=== PATIENT | male | born 1950 | race Caucasian/White ===

== ENCOUNTER 2017-06-06 09:03 | Inpatient (IN) | payer MEDICARE ==
[~2017-06-06] VITALS: Ht 177.8 cm; Wt 82.8 kg
[~2017-06-06 09:03] MED LIST: ASPIR 8181 MG PO; HYDROCODON-ACE1 EA12 PO; LASIX20 MG PO; NORVASC5 MG PO; PERINDOPRIL ERBU8 MG PO; PRAVASTATIN SOD40 MG PO; RYTHMOL150 MG PO; TIZANIDINE HCL4 MG PO; TOPROL XL50 MG PO; ZYRTEC10 MG PO
--- OUTSIDE RECORDS SUMMARY | 2017-06-06 09:06 | XMS REPORT ---
Author Author [facility] Address Unknown Phone Unavailable Care Team Providers Care Fitness Floor Attendant Name Role Phone RAMOS BARCENAS Unavailable Unavailable Problems This patient has no known problems. Allergies, Adverse Reactions, Alerts This patient has no known allergies or adverse reactions. Medications This patient has no known medications. Results Test Description Test Time Test Comments Text Results Atomic Results Result Comments CHEST 2 VIEWS [place] [address] Patient Name: JACLYN QUACH MR #: [id number] : 1950 Age/Sex: 66/M Req #: [id number] Adm Physician: Ordered by: RAMOS BARCENAS MD Report #: [id number] Location: [facility] Room/Bed: Procedure: [id number] DX/CHEST 2 VIEWS Exam Date: 02/03/17 Exam Time: 0845 REPORT STATUS: Signed PROCEDURE: Frontal and lateral views of the chest. COMPARISON: CT chest 01/23/2017. INDICATIONS: SOB FINDINGS: Lines/tubes: None. Lungs: The lungs are well inflated and clear. There is no evidence of pneumonia or pulmonary edema. Pleura : There is no pleural effusion or pneumothorax. Heart and mediastinum: The heart and the mediastinum are normal. Atherosclerotic calcifications. Postoperative changes of the ascending aorta. Bones: No acute bony abnormality. Degenerative changes of the thoracic spine. IMPRESSION: No acute radiographic abnormality. Dictated by: Jaclyn Frank M.D. on 02/03/2017 at 14:35 Electronically approved by: Jaclyn Frank M.D. on 02/03/2017 at 14:35 Dictated By: JACLYN FRANK MD 34 Transcribed By: SERG on 02/03/171434 COPY TO: RAMOS BARCENAS MD CHEST SINGLE (PORTABLE) [place] [address] Patient Name: JACLYN QUACH MR #: [id number] : 1950 Age/Sex: 66/M Req #: [id number] Adm Physician: RAMOS BARCENAS MD Ordered by: RAMOS BARCENAS MD Report #: [id number] Location: [facility] Room/Bed: [facility] Procedure: [id number] DX/CHEST SINGLE (PORTABLE) Exam Date: 01/28/17 Exam Time: 0510 REPORT STATUS: Signed EXAM: CHEST SINGLE (PORTABLE), AP 1 view DATE: 01/28/2017 8:00 AM Time stamp on exam: O 0512 hours INDICATION: Pneumonia COMPARISON: None FINDINGS: LINES/TUBES: None LUNGS: Left lower lobe atelectasis. PLEURA: No effusions or pneumothorax. HEART AND MEDIASTINUM: Normal size and contour. BONES AND SOFT TISSUES: No acute findings. IMPRESSION: Left lower lobe atelectasis. This could represent pneumonia in the appropriate clinical setting. Signed by: Dr. Kevin Mcguire M.D. on 01/28/2017 5:41 AM Dictated By: KEVIN MCGUIRE MD 0 Transcribed By: ANT on 540 COPY TO: RAMOS BARCENAS MD CT CHEST WO [facility] [address] [place] [address] Patient Name: JACLYN QUACH MR #: [id number] : 1950 Age/Sex: 66/M Req #: [id number] Adm Physician: RAMOS BARCENAS MD Ordered by: RAMOS BARCENAS MD Report #: [id number] Location: [facility] Room/Bed: [place] [address] _ Procedure: [id number] CT/CT CHEST WO Exam Date: 01/23/17 Exam Time: 1406 REPORT STATUS: Signed PROCEDURE: CT CHEST WITHOUT CONTRAST COMPARISON: Correlation is made with chest x-ray performed at 1147 hrs. INDICATIONS: PNEUMONIA TECHNIQUE: Axial CT images of the chest were obtained from the lung apices through the adrenal glands. Coronal and sagittal reformations were made available for review. No intravenous contrast was administered. RADIATION DOSE: Total DLP: 495.4 mGy*cm Estimated effective dose: (DLP x 0.014 x size factor) mSv FINDINGS: Lungs: Right lung: Patchy airspace opacities are in the posterior lower lobe with associated discoid atelectasis. The upper and middle lobes are clear. The airways are patent. The lungs diffusely hyperinflated with small foci of paraseptal emphysema and pleural-parenchymal thickening in the apex. Left lung: Patchy airspace opacity in the base of the lung with associated plaque-like atelectasis. The lung is diffusely hyperinflated with small apical paraseptal blebs and mild vertebral apical pleural-parenchymal thickening. No filling defects in the airways. Pleura: Posterior right pleural effusion measures 2.5 cm. Posterior left pleural effusion measures 3.0 cm. No focal pleural thickening. Heart T Mediastinum: The heart is top normal in size. There is a graft in the proximal descending aorta suggestive of TAVR. There are heavy calcifications of the mitral valve. Atherosclerotic ossifications are present throughout the coronary arteries, the aorta, and the origins of the great vessels at the arch. Descending aorta measures 3.1 cm in diameter. The descending aorta measures 2.7 cm in diameter. The main pulmonary artery measures 2.5 cm. There is diffuse esophageal wall thickening without hiatal hernia. 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 No pericardial effusion. Lymph nodes: No enlarged axillary, subarticular, mediastinal, or hilar lymph nodes. Thyroid/base of neck: Unremarkable. Upper abdomen: The liver is decreased in attenuation suggestive of steatosis. No mass in the visualized portions. There is inflammation surrounding the body and tail of the pancreas extending into the pararenal space. A small amount of fluid is at the dome of the liver. The spleen is normal in size and signal. No adrenal mass. Visualized bowel is unremarkable. Musculoskeletal: There are degenerative changes of the spine consistent with age. A compression deformity of T6 is approximately 40-50%. There is mild bowing of posterior cortex into the spinal canal. No significant spinal canal narrowing at this level. There is no evidence of lytic or blastic lesion. There is a healed left lateral rib fracture. CONCLUSION: 1. Bibasilar airspace opacities are suggestive of a combination of infiltrates and atelectasis with small pleural effusions. 2. Diffuse esophageal wall thickening could be secondary to vomiting or esophagitis. 3. Peripancreatic inflammation and small amount of perihepatic ascites. This is nonspecific, but pancreatitis could be an etiology. 4. Hepatic steatosis. 5. Postoperative changes of the mediastinum as described above. 6. Pulmonary hyperinflation with mild burden of paraseptal emphysema. 7. Compression deformity of T6 as described above. Dictated by: Mannie Zheng M.D. on 01/23/2017 at 15:03 Electronically approved by: Mannie Zheng M.D. on 01/23/2017 at 15:03 Dictated By: MANNIE ZHENG MD 1503 Transcribed By: SERG on 01/23/17 1503 COPY TO: RAMOS BARCENAS MD CHEST [facility] (PORTABLE) [place] [address] Patient Name: JACLYN QUACH MR #: [id number] : 1950 Age/Sex: 66/M Req #: [id number] [facility] Physician: Ordered by: ARIELLE JOE MD Report #: [id number] Location: Room/Bed: Procedure: [id number] DX/CHEST SINGLE (PORTABLE) Exam Date: 01/23/17 Exam Time: 1140 REPORT STATUS: Signed PROCEDURE: CHEST SINGLE (PORTABLE) COMPARISON: Chest x-ray, 10/26/14. INDICATIONS: NAUSEA, WEAKNESS FINDINGS: Lines and tubes: None Heart size normal. There is increased atelectasis at both lung bases , greater on the left, which may be accentuated by low lung volumes. No focal opacities in the upper lung zimmerman. No pleural effusion or pneumothorax. Upper abdomen unremarkable with no free air. No acute bony abnormality. CONCLUSION: Atelectasis at both lung bases, likely accentuated by low lung volumes. Early airspace consolidation or pneumonia at the left lung base is a consideration. Dictated by: Joy Pearson M.D. on 01/23/2017 at 12:25 Electronically approved by: Joy Pearson M.D. on 01/23/2017 at 12:25 Dictated By: JOY PEARSON MD 1225 Transcribed By: SERG on 01/23/17 1225 COPY TO: ARIELLE JOE MD
--- OUTSIDE RECORDS SUMMARY | 2017-06-06 09:06 | XMS REPORT | Summary of Care ---
Author Author [facility] Address [address] [place] [address] Phone Unavailable Care Team Providers Care Tube Machine Operator Helper Name Role Phone GWENDOLYN Muñoz, JOY Unavailable Unavailable ERICK Muñoz, HANK Unavailable Unavailable MARLENA STEPHEN, ROXANN AUGUSTE Unavailable Unavailable GWENDOLYN BAY, JOY Devi Unavailable Unavailable Unavailable Unavailable Functional Status Name Dates Details Functional status health issues are not documented Status: Name Dates Details Cognitive status health issues are not documented Status: Problems Name Dates Details Aortic stenosis (424.1, I35.0) Status: Active Aortic stenosis, severe (424.1, I35.0) Status: Active Shortness of breath (786.05, R06.02) Status: Active Special [employer] Analysis Of Computerized Data Status: Active Duration Of Encounter - Review Of Prior Records (___ min) Status: Active Medications Name Dates Details Perindopril Erbumine 4 MG Oral Tablet TAKE 1 TABLET DAILY. Active Pravastatin Sodium 40 MG Oral Tablet TAKE 1 TABLET DAILY. * Quantity: 90 Refills: 2 Active Zyrtec 10 MG TABS TAKE 1 TABLET DAILY. * Refills: 0 Active Metoprolol Succinate ER 50 MG Oral Tablet Extended Release 24 Hour TAKE 1 TABLET TWICE DAILY * Quantity: 60 Refills: 5 HANK SUAREZ M.D. Active Aspirin 81 MG Oral Tablet Delayed Release * Refills: 0 Active Lisinopril 20 MG Oral Tablet TAKE 1 TABLET DAILY. * Quantity: 90 Refills: 3 JOY SNOW M.D. Active Niacin ER 500 MG Oral Capsule Extended Release TAKE 1 CAPSULE TWICE DAILY * Refills: 0 Active Xarelto 10 MG Oral Tablet TAKE 1 TABLET DAILY * Refills: 0 Active Allergies and Adverse Reactions Name Dates Details Mobic (Allergy) Status: Active Procedures Procedure Dates Details Procedures not documented Immunization Name Dates Details Immunizations not documented Social History Name Dates Details - Status: Name Dates Details Former smoker Vital Signs Date Test Result Details No Known Vitals to report Results Date Description Value Details Results not documented Plan of Care Name Dates Details Planned Observations Planned Goals not documented Planned Encounters Appointment; DAI SALINAS: 11-Jun-2017 14:00 Appointment; JOY SNOW M.D. On: 11-Jun-2017 15:10 Instructions Name Dates Details Instructions not documented Encounters Appointment; JOY SNOW M.D. Encounter Diagnosis: Problem not documented On: 15-May-2016 15:00 Appointment; DAI SALINAS Encounter Diagnosis: Problem not documented On: 15-May-2016 16:00 Appointment; JOY SNOW M.D. Encounter Diagnosis: Problem not documented On: 05-Jun-2016 14:50 Appointment; MAGGIE SALINAS Encounter Diagnosis: Problem not documented On: 10-Jul-2016 15:30 Appointment; JOY SNOW M.D. Encounter Diagnosis: Problem not documented On: 10-Jul-2016 16:00
[2017-06-06] MEDS ORDERED: SODIUM CHLORIDE 0.9% 1000ML 1,000 ML IV STA ×3 (09:27→14:48)
[2017-06-06 09:42] LABS: BASOPHILS # (AUTO) 0.1 (0.0-0.1); BASOPHILS % 0.2 % (0.0-1.0); HEMATOCRIT 39.7 % (38.2-49.6); HEMOGLOBIN 14.2 g/dL (14.0-18.0); LYMPHOCYTES # (AUTO) 0.8 (1.0-3.2); LYMPHOCYTES % 3.5 % (18.0-39.1); MEAN CORPUSCULAR HGB CONC 35.8 g/dL (31-35); MEAN CORPUSCULAR VOLUME 86.7 fL (81-99); MONOCYTES # (AUTO) 1.1 (0.2-0.8); MONOCYTES % 4.8 % (4.4-11.3); NEUTROPHILS # (AUTO) 19.5 (2.1-6.9); NEUTROPHILS % 90.1 % (38.7-80.0); PLATELET COUNT 606 x10e3/uL (140-360); RED BLOOD COUNT 4.58 x10e6/uL (4.3-5.7); RED CELL DISTRIBUTION WIDTH 15.3 % (11.7-14.4)
[2017-06-06 10:01] LABS: ALBUMIN 2.7 g/dL (3.5-5.0); ALBUMIN/GLOBULIN RATIO 0.6 (0.8-2.0); ANION GAP 22.9 mmol/L (8-16); CALCIUM 9.2 mg/dL (8.4-10.2); CREATININE, SERUM 1.56 mg/dL (0.72-1.25); POTASSIUM 3.9 mmol/L (3.5-5.1)
[2017-06-06 10:07] LABS: CREATINE KINASE MB 0.4 ng/mL (0-5.0)
[2017-06-06 10:09] LABS: INR 1.08; PROTHROMBIN TIME 13.2 seconds (11.9-14.5)
[2017-06-06 10:10] LABS: PARTIAL THROMBOPLASTIN TIME 29.8 seconds (23.8-35.5)
[2017-06-06 10:35] LABS: B-TYPE NATRIURETIC PEPTIDE2 26.5 pg/mL (0-100)
--- NOTE | 2017-06-06 10:35 | Diagnostic Imaging Report ---
PROCEDURE: CHEST SINGLE (PORTABLE) COMPARISON: Patients [facility], DX, CHEST 2 VIEWS, 02/03/2017, 7:36. INDICATIONS: NO APPETITE FINDINGS: LUNGS: No consolidations or edema. Exam characterized by a poor inspiration. Basilar atelectasis. PLEURA: No effusions or pneumothorax. HEART \T\ MEDIASTINUM: The heart is within normal size-limits. Tortuous and calcified thoracic aorta. Vascular calcification within vessels in both axillary regions. BONES \T\ SOFT TISSUES: No acute findings. CONCLUSION: No acute thoracic abnormality. Taz Latif D.O. Dictated by: Taz Latif D.O. on 06/06/2017 at 10:35 Electronically approved by: Taz Latif D.O. on 06/06/2017 at 10:35
--- NOTE | 2017-06-06 11:53 | Diagnostic Imaging Report ---
PROCEDURE:US ABDOMEN LIMITED COMPARISON:None. INDICATIONS:UPPER ABDOMEN PAIN TECHNIQUE: Strong-scale and color doppler transverse and longitudinal images of the right upper quadrant of the abdomen were obtained. FINDINGS: Exam limited by overlying bowel gas. Liver: 13.0 cm in right mid-clavicular line. Normal echogenicity. No masses. Main portal vein: 0.6 cm, hepatopetal flow. Gallbladder: No stones, sludge, wall thickening, or pericholecystic fluid. Common Bile Duct: 0.3 cm Sonographic Doherty's sign: Negative Right kidney: 9.1 cm. Normal echogenicity. No solid masses or hydronephrosis. Pancreas: Obscured by overlying bowel gas Inferior vena cava: Obscured by overlying bowel gas Aorta: Unremarkable. Ascites: None in the right upper quadrant of the abdomen. CONCLUSION: 1. No sonographic evidence of cholelithiasis or cholecystitis. oKle Chaney M.D. Dictated by: Kole Chaney M.D. on 06/06/2017 at 11:53 Electronically approved by: Kole Chaney M.D. on 06/06/2017 at 11:53
[2017-06-06] MEDS ORDERED: ONDANSETRON HCL INJ 2 MG/ML VIAL IV PRN ×2 (12:30)
[2017-06-06] MEDS ORDERED: ONDANSETRON HCL INJ 2 MG/ML VIAL IV STA (12:58)
[2017-06-06] MEDS: PIPER-TAZ 3.375 GM 50 ML IV SCH ×2 (13:15→22:00)
[2017-06-06] MEDS: SODIUM CHLORIDE 0.9% 1000ML 1,000 ML IV SCH ×2 (14:30→23:09)
[2017-06-06] MEDS ORDERED: PANTOPRAZOLE 40 MG 10ML VIAL IV STA (14:43)
--- NOTE | 2017-06-06 18:11 | Diagnostic Imaging Report ---
PROCEDURE: CT ABDOMEN AND PELVIS WITHOUT CONTRAST TECHNIQUE: The abdomen and pelvis were scanned utilizing a multidetector helical scanner from the diaphragm to the lesser trochanter. No IV contrast was administered per physician's request. Patient unable to tolerate oral contrast. Coronal and sagittal multiplanar reformations were obtained. COMPARISON: [facility], CT, CT CHEST WO, 01/23/2017, 14:06. [facility], US, US ABDOMEN LIMITED, 06/06/2017, 11:08. INDICATIONS: VOMITING FINDINGS: ABSENCE OF INTRAVENOUS CONTRAST DECREASES SENSITIVITY FOR DETECTION OF FOCAL LESIONS AND VASCULAR PATHOLOGY. LOWER THORAX: Multiple linear opacities in the lower lobes bilaterally consistent with scarring. Mild right basal atelectatic changes. Atherosclerotic calcification of the coronary arteries and thoracic aorta. Metallic stent noted in the aorta. HEPATOBILIARY: Partially exophytic 4.3 x 3.3 x 2.7 cm fluid density lesion arising from the inferior aspect of hepatic segment IVB (series 2, image 29). No other focal hepatic lesions. No biliary ductal dilatation. Gallbladder is unremarkable. SPLEEN: No splenomegaly. Possible 2.2 cm splenule. PANCREAS: No ductal dilation or focal lesion. Mild peripancreatic stranding surrounding the head. Multiple calcific densities are noted in the expected location of the pancreatic head and uncinate process (series 2, images 38-43). ADRENALS: No adrenal nodules. KIDNEYS/URETERS: No hydronephrosis, stones, or contour abnormalities. Mild perinephric stranding. PELVIC ORGANS/BLADDER: Mild circumferential bladder wall thickening, likely due to under distention. Prostate is unremarkable. PERITONEUM / RETROPERITONEUM: Moderate fat stranding surrounds the anterior aspect of the stomach body, antrum and pylorus (series 2, image 32). LYMPH NODES: No lymphadenopathy. VESSELS: Marked atherosclerotic calcification of the abdominal aorta and iliac vessels. GI TRACT: No focal stomach lesion is noted. Bowel shows no dilation or obstruction. High density material in the terminal ileum and ileocecal valve may represent residual contrast from prior exam or ingestion of bismuth containing antacids. BONES AND SOFT TISSUES: No aggressive lytic lesion. Multilevel degenerative disc changes in the lower thoracic and lumbosacral spine. Age-indeterminate compression deformities of the T10 and L2 vertebral bodies. IMPRESSION: 1. Exam is limited by the lack of intravenous contrast. 2. Mild peripancreatic stranding surrounding the head, which may be secondary to acute episode of pancreatitis, in the appropriate clinical setting. Unable to assess for necrosis given the lack of intravenous contrast. Multiple calcifications in the expected location of the pancreatic head suggest sequela of chronic pancreatitis. 3. Moderate fat stranding surrounding the anterior aspect of the stomach body, antrum and pylorus. Although this may relate to pancreatitis, infectious or inflammatory gastritis is also a consideration. 4. 4.3 cm fluid density lesion arising from the inferior aspect of hepatic segment IVB may represent an exophytic cyst versus pseudocyst from previous episode of pancreatitis. Kole Chaney M.D. Dictated by: Kole Chaney M.D. on 06/06/2017 at 18:11 Electronically approved by: Kole Chaney M.D. on 06/06/2017 at 18:11
--- NOTE | 2017-06-06 20:21 | History and Physical ---
This 66-year-old gentleman comes in with abdominal pain. HISTORY OF PRESENT ILLNESS: Mr. Gene Mcgee has a history of COPD, history of chronic back pain, history of hyperlipidemia and history of hypertension. He was in his usual state of health until the day prior to admission when the patient started to have abdominal pain, which got very severe and the patient was having abdominal pain intensely and came to the emergency room and was found to have pancreatitis, and admitted for the same. PAST MEDICAL HISTORY: Hypertension, history of low back pain and hyperlipidemia. HOME MEDICATIONS: Amlodipine 5 mg, aspirin 81 mg, Zyrtec 10 mg, hydrocodone 10/325 . As needed, metoprolol 50 mg. Pravastatin 40 mg as night time. REVIEW OF SYSTEMS: Negative for chest pain. Positive for shortness of breath. No diarrhea. No constipation. No rectal bleeding. No hematochezia. Positive for abdominal pain. Positive for nausea and positive for some vomiting. No diplopia and no blurry vision. The patient was recently admitted for pneumonia and was on oxygen which was recently discontinued. PAST SURGICAL HISTORY: Noncontributory. PHYSICAL EXAMINATION GENERAL: The patient is alert and oriented x3. VITAL SIGNS: Pulse rate of 108, temperature 98.5, respiratory rate 27, blood pressure 121/76, pulse oximetry increased to 97% on room air. HEENT: Normocephalic, atraumatic. There is no icterus present. CVS: S1 and S2, tachycardiac. ABDOMEN: Tender in the epigastric area. EXTREMITIES: No cyanosis, clubbing or edema. LABORATORY DATA: Initial white count is 21.6, hemoglobin of 14.2 and hematocrit of 39.7. Neutrophil count was 19.5. Chemistry: Sodium 129, BUN 52, creatinine 1.5. Estimated GFR is 45. ALT and AST normal. BNP was 26.5. Amylase was 1021 and lipase was 2316. IMAGING: CT scan shows mild pancreatic stranding surrounding the head, moderate , in the anterior aspect of the stomach and 4.3 cm fluid density lesion in the right inferior aspect of the hepatic segment, exophytic cyst versus pseudocyst from the previous episode of pancreatitis. ASSESSMENT: Pancreatitis. PLAN: We will go ahead and increase his fluids to about 250 mL an hour. Consult Dr. Layo Maddox. Zosyn mg IV q.6 h. for leukocytosis. Repeat labs, amylase and lipase. Further recommendations depending on clinical course. The patient has a social history of ETOH. We have told the patient not to consume any more alcohol. Continue monitoring the patient. Job#: [id number] MARTHA
[2017-06-06] MEDS: PANTOPRAZOLE 40 MG 10ML VIAL IV SCH (20:33)
[2017-06-07] MEDS: SODIUM CHLORIDE 0.9% 1000ML 1,000 ML IV SCH ×8 (03:09→21:29)
[2017-06-07] MEDS ORDERED: SODIUM CHLORIDE 0.9% 1000ML 1,000 ML IV SCH (04:15)
[2017-06-07 06:10] LABS: BASOPHILS # (AUTO) 0.1 (0.0-0.1); BASOPHILS % 0.3 % (0.0-1.0); EOSINOPHILS % 0.2 % (0.0-6.0); HEMATOCRIT 30.9 % (38.2-49.6); HEMOGLOBIN 10.7 g/dL (14.0-18.0); LYMPHOCYTES # (AUTO) 0.8 (1.0-3.2); LYMPHOCYTES % 3.7 % (18.0-39.1); MEAN CORPUSCULAR HEMOGLOBIN 30.4 pg (28-32); MEAN CORPUSCULAR HGB CONC 34.6 g/dL (31-35); MEAN CORPUSCULAR VOLUME 87.8 fL (81-99); MONOCYTES # (AUTO) 0.8 (0.2-0.8); MONOCYTES % 3.9 % (4.4-11.3); NEUTROPHILS # (AUTO) 18.7 (2.1-6.9); NEUTROPHILS % 89.7 % (38.7-80.0); PLATELET COUNT 418 x10e3/uL (140-360); RED BLOOD COUNT 3.52 x10e6/uL (4.3-5.7); RED CELL DISTRIBUTION WIDTH 15.7 % (11.7-14.4)
[2017-06-07 06:42] LABS: ALANINE AMINOTRANSFERASE 9 IU/L (0-55); ALBUMIN 1.9 g/dL (3.5-5.0); ALBUMIN/GLOBULIN RATIO 0.5 (0.8-2.0); ALKALINE PHOSPHATASE 95 IU/L (40-150); AMYLASE 820 U/L (25-125); ANION GAP 15.3 mmol/L (8-16); BLOOD UREA NITROGEN 32 mg/dL (7-26); BUN/CREATININE RATIO 34 (6-25); CALCIUM 7.4 mg/dL (8.4-10.2); CARBON DIOXIDE 22 mmol/L (22-29); CHLORIDE 100 mmol/L (98-107); CHOL/HDL RATIO 5.1 (3.9-4.7); CHOLESTEROL 77 MD/DL (0-199); CREATININE, SERUM 0.93 mg/dL (0.72-1.25); EST GLOMERULAR FILTRATION RATE > 60 ML/MIN (60-); GLUCOSE 104 mg/dL (74-118); HDL CHOLESTEROL 15 MG/DL (40-60); LDL CHOLESTEROL 48 MG/DL (60-130); POTASSIUM 3.3 mmol/L (3.5-5.1); SODIUM 134 mmol/L (136-145); TRIGLYCERIDES 72 MG/DL (0-149)
[2017-06-07] MEDS: PIPER-TAZ 3.375 GM 50 ML IV SCH ×3 (06:58→21:28)
[2017-06-07 07:07] LABS: LIPASE 1599 U/L (8-78)
[2017-06-07 08:53] LABS: LYMPHOCYTES % (MANUAL) 2 % (19-48); MONOCYTES % (MANUAL) 2 % (3.4-9.0); NEUTROPHILS % (MANUAL) 96 % (40-74); PLATELET ESTIMATE MODERATELY INCREASED; PLATELET MORPHOLOGY COMMENT NORMAL; RBC MORPHOLOGY COMMENT NORMAL
[2017-06-07] MEDS: PANTOPRAZOLE 40 MG 10ML VIAL IV SCH ×2 (10:33→19:43)
[2017-06-07 16:13] VITALS: BP 123/62
[2017-06-07 19:12] VITALS: BP 123/62
[2017-06-07 20:14] VITALS: BP 117/65
[2017-06-07] MEDS ORDERED: ZOLPIDEM TARTRATE 5 MG TAB PO PRN (21:15)
[2017-06-08] VITALS (8 sets, daily range): BP systolic 113–130; BP diastolic 61–75
[2017-06-08] MEDS: SODIUM CHLORIDE 0.9% 1000ML 1,000 ML IV SCH ×6 (03:37→21:56)
[2017-06-08] MEDS: PIPER-TAZ 3.375 GM 50 ML IV SCH ×3 (05:31→21:33)
[2017-06-08 07:23] LABS: BASOPHILS # (AUTO) 0.1 (0.0-0.1); BASOPHILS % 0.5 % (0.0-1.0); EOSINOPHILS # (AUTO) 0.1 (0.0-0.4); EOSINOPHILS % 0.3 % (0.0-6.0); HEMATOCRIT 26.9 % (38.2-49.6); HEMOGLOBIN 9.5 g/dL (14.0-18.0); LYMPHOCYTES % 4.5 % (18.0-39.1); MEAN CORPUSCULAR HEMOGLOBIN 31.1 pg (28-32); MEAN CORPUSCULAR HGB CONC 35.3 g/dL (31-35); MEAN CORPUSCULAR VOLUME 88.2 fL (81-99); MONOCYTES # (AUTO) 1.2 (0.2-0.8); MONOCYTES % 5.3 % (4.4-11.3); NEUTROPHILS # (AUTO) 18.9 (2.1-6.9); NEUTROPHILS % 85.6 % (38.7-80.0); PLATELET COUNT 344 x10e3/uL (140-360); RED BLOOD COUNT 3.05 x10e6/uL (4.3-5.7); RED CELL DISTRIBUTION WIDTH 16.1 % (11.7-14.4)
[2017-06-08 07:44] LABS: ALANINE AMINOTRANSFERASE 14 IU/L (0-55); ALBUMIN 1.8 g/dL (3.5-5.0); ALBUMIN/GLOBULIN RATIO 0.5 (0.8-2.0); ALKALINE PHOSPHATASE 94 IU/L (40-150); AMYLASE 651 U/L (25-125); ANION GAP 16.7 mmol/L (8-16); BLOOD UREA NITROGEN 14 mg/dL (7-26); BUN/CREATININE RATIO 18 (6-25); CALCIUM 7.2 mg/dL (8.4-10.2); CARBON DIOXIDE 19 mmol/L (22-29); CHLORIDE 100 mmol/L (98-107); EST GLOMERULAR FILTRATION RATE > 60 ML/MIN (60-); GLUCOSE 92 mg/dL (74-118); SODIUM 133 mmol/L (136-145)
[2017-06-08 08:19] LABS: POTASSIUM 2.7 mmol/L (3.5-5.1)
[2017-06-08] MEDS ORDERED: POTASSIUM CHLORIDE 20MEQ/100ML 300 ML IV ONE (08:45)
[2017-06-08] MEDS: PANTOPRAZOLE 40 MG 10ML VIAL IV SCH ×2 (09:07→21:33)
[2017-06-08] MEDS ORDERED: LORAZEPAM INJ 2 MG/ML VIAL IV ONE (09:45)
[2017-06-08] MEDS: LORAZEPAM INJ 2 MG/ML VIAL IV PRN ×2 (09:56→17:24)
[2017-06-08] MEDS: POTASSIUM CHLORIDE 20 MEQ in SODIUM CHLORIDE 0.9% 90 ML IV NR ×3 (10:30→14:30)
[2017-06-08 10:36] LABS: LIPASE 1586 U/L (8-78)
[2017-06-08 11:46] LABS: BAND NEUTROPHILS % (MANUAL) 7 %; LYMPHOCYTES % (MANUAL) 6 % (19-48); MONOCYTES % (MANUAL) 3 % (3.4-9.0); NEUTROPHILS % (MANUAL) 84 % (40-74)
[2017-06-08 11:47] LABS: PLATELET ESTIMATE ADEQUATE; PLATELET MORPHOLOGY COMMENT NORMAL; RBC MORPHOLOGY COMMENT NORMAL
[2017-06-08] MEDS ORDERED: ACETAMINOPHEN 1000 MG/100 ML IV PRN (12:00)
[2017-06-08 12:20] LABS: BILIRUBIN,URINE NEGATIVE (NEGATIVE); KETONES,URINE 2+ (NEGATIVE); LEUKOCYTE ESTERASE ,URINE NEGATIVE (NEGATIVE); NITRITE,URINE NEGATIVE (NEGATIVE); URINE UROBILINOGEN 0.2 mg/dL (0.2 - 1)
[2017-06-08 12:23] LABS: CLARITY,URINE HAZY (CLEAR); COLOR,URINE YELLOW (YELLOW); PROTEIN,URINE DIPSTICK TRACE (NEGATIVE)
[2017-06-08] MEDS ORDERED: MAGNESIUM SULFATE 2GM/50ML 50 ML IV NR ×2 (12:30→16:30)
[2017-06-08 12:34] LABS: AMORPHOUS SEDIMENT,URINE FEW (FEW); BACTERIA,URINE FEW /HPF; EPITHELIAL CELLS,URINE FEW /LPF; RBC,URINE 0-5 /HPF (0-5); WBC,URINE (MAN) 0-5 /HPF (0-5)
[2017-06-08 16:24] LABS: ABG HCO3 19 mmol/L (23-28); ABG PCO2 24 mmHg (41-51); ABG PO2 75 mmHg (80-105)
[2017-06-08 18:39] LABS: FREE THYROXINE INDEX 1.6982 (1.4-3.8); THYROID STIMULATING HORMONE 0.668 uIU/mL (0.350-4.940)
[2017-06-08 19:39] LABS: HEMATOCRIT 30.1 % (38.2-49.6); HEMOGLOBIN 10.4 g/dL (14.0-18.0)
[2017-06-08 19:50] LABS: MAGNESIUM 1.7 MG/DL (1.3-2.1); POTASSIUM 3.2 mmol/L (3.5-5.1)
[2017-06-08 21:41] LABS: BASOPHILS # (AUTO) 0.1 (0.0-0.1); BASOPHILS % 0.3 % (0.0-1.0); EOSINOPHILS # (AUTO) 0.1 (0.0-0.4); EOSINOPHILS % 0.6 % (0.0-6.0); LYMPHOCYTES # (AUTO) 1.1 (1.0-3.2); LYMPHOCYTES % 4.7 % (18.0-39.1); MEAN CORPUSCULAR HEMOGLOBIN 30.4 pg (28-32); MEAN CORPUSCULAR HGB CONC 33.4 g/dL (31-35); MEAN CORPUSCULAR VOLUME 90.9 fL (81-99); MONOCYTES % 4.4 % (4.4-11.3); NEUTROPHILS % 86.1 % (38.7-80.0); PLATELET COUNT 397 x10e3/uL (140-360); RED BLOOD COUNT 3.42 x10e6/uL (4.3-5.7); RED CELL DISTRIBUTION WIDTH 16.5 % (11.7-14.4)
[2017-06-08 22:30] LABS: BAND NEUTROPHILS % (MANUAL) 5 %; LYMPHOCYTES % (MANUAL) 6 % (19-48); MONOCYTES % (MANUAL) 3 % (3.4-9.0); NEUTROPHILS % (MANUAL) 86 % (40-74); RBC MORPHOLOGY COMMENT NORMAL
[2017-06-08 22:31] LABS: ANISOCYTOSIS SLIGHT; PLATELET ESTIMATE SLIGHTLY INCREASED; PLATELET MORPHOLOGY COMMENT NORMAL
--- NOTE | 2017-06-08 23:29 | Diagnostic Imaging Report ---
EXAM: CHEST 2 VIEWS, PA and lateral INDICATION: Acute pancreatitis, leukocytosis COMPARISON: AP view of the chest January 28, 2017 FINDINGS: LINES/TUBES: None LUNGS: Interval increased bibasilar atelectasis. PLEURA: Trace bilateral pleural effusions. HEART AND MEDIASTINUM: Normal size and contour. BONES AND SOFT TISSUES: No acute findings. IMPRESSION: Increasing bibasilar atelectasis. Trace bilateral pleural effusions. Signed by: Dr. Bethanie Mgcuire M.D. on 06/08/2017 11:25 PM
[2017-06-09] VITALS (8 sets, daily range): BP systolic 99–130; BP diastolic 58–75
[2017-06-09] MEDS: SODIUM CHLORIDE 0.9% 1000ML 1,000 ML IV SCH ×6 (04:34→23:09)
[2017-06-09] MEDS: PIPER-TAZ 3.375 GM 50 ML IV SCH ×3 (05:30→21:59)
[2017-06-09 07:16] LABS: BASOPHILS # (AUTO) 0.1 (0.0-0.1); BASOPHILS % 0.3 % (0.0-1.0); EOSINOPHILS # (AUTO) 0.1 (0.0-0.4); EOSINOPHILS % 0.3 % (0.0-6.0); HEMATOCRIT 28.7 % (38.2-49.6); HEMOGLOBIN 9.8 g/dL (14.0-18.0); LYMPHOCYTES % 3.8 % (18.0-39.1); MEAN CORPUSCULAR HEMOGLOBIN 31.2 pg (28-32); MEAN CORPUSCULAR HGB CONC 34.1 g/dL (31-35); MEAN CORPUSCULAR VOLUME 91.4 fL (81-99); MONOCYTES # (AUTO) 1.3 (0.2-0.8); NEUTROPHILS # (AUTO) 22.2 (2.1-6.9); NEUTROPHILS % 85.9 % (38.7-80.0); PLATELET COUNT 357 x10e3/uL (140-360); RED BLOOD COUNT 3.14 x10e6/uL (4.3-5.7); RED CELL DISTRIBUTION WIDTH 16.3 % (11.7-14.4)
[2017-06-09] MEDS: PANTOPRAZOLE 40 MG 10ML VIAL IV SCH ×2 (07:41→20:06)
[2017-06-09 07:55] LABS: ALANINE AMINOTRANSFERASE 10 IU/L (0-55); ALBUMIN 1.7 g/dL (3.5-5.0); ALBUMIN/GLOBULIN RATIO 0.5 (0.8-2.0); ALKALINE PHOSPHATASE 96 IU/L (40-150); AMYLASE 835 U/L (25-125); BLOOD UREA NITROGEN 11 mg/dL (7-26); BUN/CREATININE RATIO 13 (6-25); CALCIUM 7.5 mg/dL (8.4-10.2); CARBON DIOXIDE 18 mmol/L (22-29); CHLORIDE 101 mmol/L (98-107); CREATININE, SERUM 0.85 mg/dL (0.72-1.25); EST GLOMERULAR FILTRATION RATE > 60 ML/MIN (60-); GLUCOSE 100 mg/dL (74-118); SODIUM 132 mmol/L (136-145)
[2017-06-09 08:49] LABS: LIPASE 1583 U/L (8-78)
[2017-06-09] MEDS ORDERED: POTASSIUM CHL 40 MEQ in SODIUM CHLORIDE 0.9% 250ML 250 ML IV ONE (09:15)
[2017-06-09] MEDS: LORAZEPAM INJ 2 MG/ML VIAL IV PRN ×2 (12:39→19:17)
--- NOTE | 2017-06-09 13:52 | Consultation ---
DATE OF CONSULTATION: June 09, 2017 CARDIOLOGY CONSULTATION ATTENDING PHYSICIAN: Dr. Kamar Norris. Thank you so much for asking me to see Mr. Mcgee again in consultation. HISTORY OF PRESENT ILLNESS: He is a 66-year-old man known to me for many years. CHIEF COMPLAINT: He was admitted on the with problems of nausea, vomiting, and evidently some confusion. PAST MEDICAL HISTORY: Significant for longstanding hypertension and hyperlipidemia. He had ablation of atrial flutter in 2015 and he had transaortic valve replacement for aortic stenosis in June 2016. RECENT HOME MEDICATIONS: Include; 1. Pravastatin 40 mg daily. 2. Hydrocodone/acetaminophen 7.5/325 every 6 hours as needed. 3. Aspirin 81 mg daily. 4. Metoprolol tartrate 50 mg b.i.d. 5. Norvasc 5 mg daily. PERSONAL/SOCIAL HISTORY: Patient lives with his . He is known to drink alcohol. PREVIOUS HOSPITALIZATIONS: When patient was in [place], [place] in 2012, he had esophageal and duodenal ulcers with GI bleeding, requiring 5 units of packed red blood cells. He reports that he was in [facility] in December 2016 for "viral pneumonia." PHYSICAL EXAMINATION GENERAL: At this time shows a white man, who looks older than his stated age. VITAL SIGNS: Blood pressure 117/70, pulse 100 and regular. HEENT: Unremarkable. NECK: No jugular venous distention. THORAX: Heart sounds S1, S2 are equal. No murmurs. Lungs are clear. ABDOMEN: Protuberant, nontender. EXTREMITIES: No cyanosis, clubbing, or edema. LABORATORY DATA: Pertinent laboratory studies on the computer show amylase of 835 today with lipase 1583. Potassium is low at 3.0. Transaminases are normal. Coags normal. CBC today shows white count 25,800, hemoglobin 9.8, platelets 357,000. EKG shows sinus tachycardia. ASSESSMENT 1. Pancreatitis. 2. Delirium tremens from alcohol withdrawal. PLAN: I have discussed the son's questions about delirium tremens and I believe his cardiac status is relative stable. We will follow him closely with you. Thank for asking me to see him in consultation. Job#: [id number] VAS cc:JOSE RUFF MD
[2017-06-09] MEDS: METOPROLOL TARTRATE INJ 1 MG/ML VIAL IV PRN (22:23)
[2017-06-09] MEDS ORDERED: BISACODYL 10 MG SUPP PR ONE ×2 (23:15)
[2017-06-09] MEDS ORDERED: ACETAMINOPHEN 1000 MG/100 ML IV PRN (23:15)
[2017-06-10] VITALS (8 sets, daily range): BP systolic 105–127; BP diastolic 54–74
[2017-06-10] MEDS: SODIUM CHLORIDE 0.9% 1000ML 1,000 ML IV SCH ×4 (00:24→20:59)
--- NOTE | 2017-06-10 04:02 | Diagnostic Imaging Report ---
EXAM: CT Abdomen and Pelvis WITH contrast INDICATION: Abdominal pain. COMPARISON: 06/06/2017 TECHNIQUE: Abdomen and pelvis were scanned utilizing a multidetector helical scanner from the lung base to the pubic symphysis after administration of IV contrast. Coronal and sagittal reformations were obtained. Routine protocol was performed. Scan was performed when during portal venous phase. IV CONTRAST: 100 mL of Isovue-370 ORAL CONTRAST: Water RADIATION DOSE: Total DLP: 649.24 mGy*cm Estimated effective dose: (DLP x 0.015 x size factor) mSv COMPLICATIONS: None FINDINGS: LINES and TUBES: None. LOWER THORAX: Interval development of bilateral small pleural effusions left greater than right with associated compressive atelectasis. Again, aortic valve stent and extensive coronary artery disease as well as calcification of the mitral valve are noted. HEPATOBILIARY: Interval development of a subcapsular left hepatic fluid collection measuring 14.2 x 5.9 cm best seen on series 2, image 20. The fluid collection appears to be contiguous from the supine capsular space into the gastrohepatic space. The remaining of the liver parenchyma is stable with a simple cyst in segment IVb. No biliary ductal dilation. GALLBLADDER: No radio-opaque stones or sludge. No wall thickening. SPLEEN: No splenomegaly. PANCREAS: Pancreas is diffusely atrophic with areas of calcification in the pancreatic head and neck ADRENALS: No adrenal nodules KIDNEYS/URETERS: Kidneys enhance symmetrically. No hydronephrosis. No cystic or solid mass lesions. No stones. GI TRACT: Circumferential thickening of the gastric wall at the body and antrum and fluid along the gastrohepatic ligament . Appendix is not clearly identified. There is however no fat stranding or adenopathy in the right lower quadrant to suggest appendicitis. PELVIC ORGANS/BLADDER: Henley catheter decompressing the urinary bladder. LYMPH NODES: No lymphadenopathy. VESSELS: There is moderate atherosclerotic disease in the aorta and major arterial branches. PERITONEUM / RETROPERITONEUM: Small amount of free fluid in the abdomen. The fluid is predominantly seen in the upper abdomen tracking down through the bilateral paracolic gutters into the pelvis. The fluid density is simple fluid BONES: There are degenerative changes in the lumbar spine. Old compression deformity at the lower thoracic spine involving T10 SOFT TISSUES: Unremarkable. IMPRESSION: 1. Interval development of subcapsular hepatic fluid collection tracking the hepatogastric ligament associated with thickening of the gastric wall and third spacing of fluid in the pleural and peritoneal spaces. 2. This findings are suspicious for complicated peptic ulcerative disease in the appropriate clinical setting. 3. Findings compatible with chronic pancreatitis. Acute on chronic pancreatitis is within the differential diagnosis. 4. Coronary artery disease and atherosclerotic disease of the thoracoabdominal aorta present. 5. Bilateral lower lobe atelectasis and effusion. Signed by: Dr. Didier Keene M.D. on 06/10/2017 3:59 AM
[2017-06-10] MEDS: PIPER-TAZ 3.375 GM 50 ML IV SCH ×2 (05:10→15:24)
[2017-06-10] MEDS ORDERED: BISACODYL 10 MG SUPP PR ONE ×2 (05:45→06:45)
[2017-06-10 06:50] LABS: BASOPHILS # (AUTO) 0.1 (0.0-0.1); BASOPHILS % 0.5 % (0.0-1.0); EOSINOPHILS # (AUTO) 0.2 (0.0-0.4); EOSINOPHILS % 0.7 % (0.0-6.0); HEMATOCRIT 27.5 % (38.2-49.6); HEMOGLOBIN 9.2 g/dL (14.0-18.0); LYMPHOCYTES # (AUTO) 1.4 (1.0-3.2); LYMPHOCYTES % 5.4 % (18.0-39.1); MEAN CORPUSCULAR HEMOGLOBIN 30.7 pg (28-32); MEAN CORPUSCULAR HGB CONC 33.5 g/dL (31-35); MEAN CORPUSCULAR VOLUME 91.7 fL (81-99); MONOCYTES # (AUTO) 1.3 (0.2-0.8); MONOCYTES % 5.1 % (4.4-11.3); NEUTROPHILS # (AUTO) 21.9 (2.1-6.9); PLATELET COUNT 350 x10e3/uL (140-360); RED CELL DISTRIBUTION WIDTH 16.5 % (11.7-14.4)
[2017-06-10] MEDS ORDERED: SODIUM CHLORIDE 0.9% 50ML 50 ML ONE (07:03)
[2017-06-10] MEDS ORDERED: IOPAMIDOL 370 MG/ML 200 ML INFUS..BTL INJ ONE (07:03)
[2017-06-10 07:15] LABS: ALANINE AMINOTRANSFERASE 9 IU/L (0-55); ALBUMIN 1.5 g/dL (3.5-5.0); ALBUMIN/GLOBULIN RATIO 0.4 (0.8-2.0); ALKALINE PHOSPHATASE 108 IU/L (40-150); ANION GAP 13.2 mmol/L (8-16); BLOOD UREA NITROGEN 10 mg/dL (7-26); BUN/CREATININE RATIO 13 (6-25); CALCIUM 7.5 mg/dL (8.4-10.2); CARBON DIOXIDE 18 mmol/L (22-29); CHLORIDE 111 mmol/L (98-107); EST GLOMERULAR FILTRATION RATE > 60 ML/MIN (60-); GLUCOSE 88 mg/dL (74-118); LIPASE 844 U/L (8-78); POTASSIUM 3.2 mmol/L (3.5-5.1); SODIUM 139 mmol/L (136-145)
[2017-06-10] MEDS ORDERED: MULTIVITAMINS- 12 INJECTION 10 ML, FOLIC ACID MDV 5 MG, THIAMINE HCL INJ 100 MG in SODI... IV ONE (08:30)
[2017-06-10] MEDS: PANTOPRAZOL 40MG/SOD CHL 0.9% 50 ML IV SCH ×4 (08:44→23:51)
[2017-06-10 08:48] LABS: BAND NEUTROPHILS % (MANUAL) 3 %; EOSINOPHILS % (MANUAL) 1 % (0-7); LYMPHOCYTES % (MANUAL) 3 % (19-48); MONOCYTES % (MANUAL) 4 % (3.4-9.0); MYELOCYTES % (MANUAL) 2 % (0-0); NEUTROPHILS % (MANUAL) 87 % (40-74)
[2017-06-10 08:49] LABS: ANISOCYTOSIS MODERATE; HYPOCHROMASIA SLIGHT; PLATELET ESTIMATE ADEQUATE; PLATELET MORPHOLOGY COMMENT FEW LARGE; RBC MORPHOLOGY COMMENT NORMAL
[2017-06-10] MEDS: VANCOMYCIN 1GM/NS 250 ML 250 ML IV SCH ×2 (08:54→21:00)
[2017-06-10 09:12] LABS: CALCIUM IONIZED 1.1 mmol/L (1.09-1.30)
[2017-06-10 09:29] LABS: PHOSPHORUS 1.8 MG/DL (2.3-4.7)
[2017-06-10 09:47] LABS: MAGNESIUM 1.4 MG/DL (1.3-2.1)
[2017-06-10] MEDS ORDERED: POTASSIUM CHLORIDE 20 MEQ TAB CR PO STA (10:10)
[2017-06-10] MEDS ORDERED: MAGNESIUM SULFATE 2GM/50ML 50 ML IV ONE (10:15)
[2017-06-10] MEDS ORDERED: POTASSIUM CHLORIDE 20MEQ/100ML 100 ML IV ONE (10:45)
[2017-06-10] MEDS: LORAZEPAM INJ 2 MG/ML VIAL IV PRN ×2 (13:34→20:00)
--- NOTE | 2017-06-10 15:38 | Diagnostic Imaging Report ---
PROCEDURE:US CHEST (INCL MEDIASTINUM) COMPARISON:None. INDICATIONS:PLEURAL EFFUSION FINDINGS:Examination shows very small left pleural effusion. No significant fluid is noted in the right chest. CONCLUSION: 1. Very small left pleural effusion. No significant fluid on the right chest. Kole Chaney M.D. Dictated by: Kole Chaney M.D. on 06/10/2017 at 15:38 Electronically approved by: Kole Chaney M.D. on 06/10/2017 at 15:38
--- NOTE | 2017-06-10 16:28 | Consultation ---
DATE OF CONSULTATION: REASON FOR CONSULTATION: Pancreatitis. Recommendation for antibiotic. HISTORY OF PRESENT ILLNESS: This patient, who is a 66-year-old white male, has history of COPD, history of chronic back pain, hyperlipidemia and hypertension. Apparently he drinks alcohol according to his 2 to 6, maybe more sometimes, she is not so sure. The patient apparently has been sick for more than a week with abdominal pain, epigastric, getting progressively worse. The patient was admitted on 06/06/2017. Infectious disease was asked to see him today to make recommendation in terms of antibiotic. The patient does not seem to be a good source of information at the present time. His and son are at the bedside. The patient has history of hypertension and history of low back pain. He was on amlodipine, Zyrtec, metoprolol and pravastatin at home. ALLERGIES: NKA. SOCIAL HISTORY: He drinks alcohol 2 to 4, maybe more, drinks per day. REVIEW OF SYSTEMS: He does have hiccups. He does not have any specific complaint. He is confused at the present time. LABORATORY DATA: Reviewed. His white count on admission was 20, today 26.05, hemoglobin 9.2, platelets 350. Sodium 139, potassium 3.2, creatinine 0.8. Liver enzymes, ALT and AST within normal limits. Amylase was 835, and lipase was 1583, then came down to 844. Blood cultures are not done yet. PHYSICAL EXAMINATION GENERAL: He is lethargic, slightly confused. VITALS: His T max is 101.5. HEENT: Not icteric. Normocephalic. CHEST: A few crackles. COR: S1 and S2, no evidence of murmur. ABDOMEN: Soft. Diffuse discomfort. EXTREMITIES: Edema. SKIN: No rash. CAT scan showed subcapsular hepatic fluid collection with thickening of the gastric wall and 3rd spacing of the fluid suggestive of complicated peptic ulcer disease. Chronic pancreatitis and coronary artery disease. IMPRESSION: Concerned about peptic ulcer disease with early rupture. Will discuss with surgery. His abdomen is soft. The patient is certainly complicated. He does have pancreatitis. He also has probable delirium tremens. He is currently on Zosyn. Will add Diflucan. Will obtain blood cultures and serial CBCs. He is n.p.o. Will follow. Job#: [id number]
[2017-06-10] MEDS: FLUCONAZOLE 200 MG/100 ML 100 ML IV SCH (16:37)
[2017-06-10] MEDS: MEROPENEM 500 MG VIAL IV SCH ×2 (16:39→23:30)
[2017-06-10] MEDS ORDERED: MEROPENEM 500MG 500 MG in SODIUM CHLORIDE 0.9% 50ML 50 ML IV SCH (18:00)
[2017-06-10] MEDS: NYSTATIN 15 GM POWDER UD BTL TOP SCH (18:41)
[2017-06-10] MEDS: MUPIROCIN 2% OINT 22 GM TUBE TOP SCH (18:41)
[2017-06-10] MEDS: BALSAM PERU/CASTOR OIL 60 GM OINT...G. TP SCH (18:41)
--- NOTE | 2017-06-10 19:03 | Diagnostic Imaging Report ---
PROCEDURE: A single AP view of the chest. COMPARISON: Patients [facility], , CHEST 2 VIEWS, 06/08/2017, 22:54. INDICATIONS: PICC LINE PLACEMENT FINDINGS: See impression. IMPRESSION: 1. interval placement of right-sided PICC line, with distal tip projecting in the region of the junction of the left and right innominate veins. 2. Otherwise, no significant interval change in bilateral pleural effusions and associated lower lobe opacities Kole Chaney M.D. Dictated by: Kole Chaney M.D. on 06/10/2017 at 19:03 Electronically approved by: Kole Chaney M.D. on 06/10/2017 at 19:03
--- NOTE | 2017-06-10 20:35 | Diagnostic Imaging Report ---
A single frontal view of the chest. HISTORY: PICC line placement, acute pancreatitis COMPARISON: Chest radiograph from 1848 the same date. DISCUSSION: Portable technique, limits sensitivity of the exam. Lordotic projection. Soft tissue attenuation partially limits sensitivity of the exam. Multiple overlying tubes and lines. Tubes/Lines: Right upper extremity PICC line, the tip of the catheter projects in the region of the proximal right atrium. Lungs and pleura: Low lung volumes result in bibasilar vascular crowding, accentuation of the pulmonary interstitial markings, central pulmonary vasculature, and the cardiac silhouette. Allowing for these limitations, the findings are as follows: Bibasilar atelectasis, left greater than right. Small pleural effusions, left greater than right. Heart and mediastinum: The cardiac silhouette is predominantly obscured. Prominent central pulmonary vasculature. Bones: No acute osseous lesion is identified, given this limited exam. IMPRESSION: Status post PICC line placement, the tip of the catheter projects in the region of the proximal right atrium. Signed by: Dr. Matthew Diamond D.O., M.M.M. on 06/10/2017 8:32 PM
--- NOTE | 2017-06-10 21:30 | Diagnostic Imaging Report ---
EXAMINATION: CHEST XRAY LINE PLACEMENT INDICATION: PICC line placement. COMPARISON: 06/10/2017 at 1951 hours FINDINGS: TUBES and LINES: Interval retraction of PICC line now with tip at the mid SVC. LUNGS: Lungs are not well inflated. There are bibasilar atelectasis. There is perihilar interstitial opacities, consistent with interstitial edema. PLEURA: Small bilateral pleural effusions HEART AND MEDIASTINUM: Cardiac size is mildly enlarged. There are atherosclerotic calcifications within the aorta. BONES AND SOFT TISSUES: No acute osseous lesion. Soft tissues are unremarkable. UPPER ABDOMEN: No free air under the diaphragm. IMPRESSION: 1. Findings are in keeping with benign edema and small bilateral pleural effusions. 2. PICC line is in good position at the level of the mid SVC. Signed by: Dr. Didier Keene M.D. on 06/10/2017 9:26 PM
[2017-06-10] MEDS: METOPROLOL TARTRATE INJ 1 MG/ML VIAL IV PRN (22:46)
[2017-06-11] VITALS: BP 125/60
[2017-06-11] MEDS: SODIUM CHLORIDE 0.9% 1000ML 1,000 ML IV SCH ×5 (00:30→12:04)
[2017-06-11 04:00] VITALS: BP_SYST 123; BP_SYST 125; BP_DIAS 60; BP_DIAS 72
[2017-06-11] MEDS: METOPROLOL TARTRATE INJ 1 MG/ML VIAL IV PRN ×2 (04:53→09:35)
[2017-06-11] MEDS: PANTOPRAZOL 40MG/SOD CHL 0.9% 50 ML IV SCH ×3 (05:20→14:08)
[2017-06-11] MEDS: MEROPENEM 500 MG VIAL IV SCH ×2 (05:30→12:37)
[2017-06-11 06:29] LABS: BASOPHILS # (AUTO) 0.1 (0.0-0.1); BASOPHILS % 0.4 % (0.0-1.0); EOSINOPHILS # (AUTO) 0.2 (0.0-0.4); EOSINOPHILS % 0.7 % (0.0-6.0); LYMPHOCYTES # (AUTO) 1.3 (1.0-3.2); LYMPHOCYTES % 4.4 % (18.0-39.1); MEAN CORPUSCULAR HEMOGLOBIN 30.6 pg (28-32); MEAN CORPUSCULAR HGB CONC 34.6 g/dL (31-35); MEAN CORPUSCULAR VOLUME 88.4 fL (81-99); MONOCYTES # (AUTO) 1.2 (0.2-0.8); MONOCYTES % 3.9 % (4.4-11.3); NEUTROPHILS # (AUTO) 25.7 (2.1-6.9); NEUTROPHILS % 85.8 % (38.7-80.0); PLATELET COUNT 387 x10e3/uL (140-360); RED BLOOD COUNT 2.94 x10e6/uL (4.3-5.7); RED CELL DISTRIBUTION WIDTH 16.7 % (11.7-14.4)
[2017-06-11 06:42] LABS: ALANINE AMINOTRANSFERASE 7 IU/L (0-55); ALBUMIN 1.5 g/dL (3.5-5.0); ALBUMIN/GLOBULIN RATIO 0.5 (0.8-2.0); ALKALINE PHOSPHATASE 107 IU/L (40-150); BLOOD UREA NITROGEN 8 mg/dL (7-26); BUN/CREATININE RATIO 11 (6-25); CALCIUM 7.4 mg/dL (8.4-10.2); CARBON DIOXIDE 18 mmol/L (22-29); CHLORIDE 114 mmol/L (98-107); CREATININE, SERUM 0.76 mg/dL (0.72-1.25); EST GLOMERULAR FILTRATION RATE > 60 ML/MIN (60-); GLUCOSE 83 mg/dL (74-118); LIPASE 560 U/L (8-78); MAGNESIUM 1.2 MG/DL (1.3-2.1); PHOSPHORUS 1.9 MG/DL (2.3-4.7); SODIUM 143 mmol/L (136-145)
[2017-06-11 08:00] VITALS: BP 119/72
[2017-06-11 08:01] LABS: LYMPHOCYTES % (MANUAL) 4 % (19-48); METAMYELOCYTES % (MANUAL) 1 % (0-0); MONOCYTES % (MANUAL) 4 % (3.4-9.0); MYELOCYTES % (MANUAL) 1 % (0-0); NEUTROPHILS % (MANUAL) 90 % (40-74)
[2017-06-11 08:02] LABS: ANISOCYTOSIS SLIG; HYPOCHROMASIA SLIGHT; PLATELET ESTIMATE ADEQUATE; POIKILOCYTOSIS SLIGHT; TOXIC GRANULATION SLIGHT
[2017-06-11 08:03] LABS: RBC MORPHOLOGY COMMENT NORMAL
[2017-06-11] MEDS: MUPIROCIN 2% OINT 22 GM TUBE TOP SCH (09:47)
[2017-06-11] MEDS: BALSAM PERU/CASTOR OIL 60 GM OINT...G. TP SCH (09:47)
[2017-06-11] MEDS: NYSTATIN 15 GM POWDER UD BTL TOP SCH (09:47)
[2017-06-11] MEDS: VANCOMYCIN 1GM/NS 250 ML 250 ML IV SCH (10:02)
[2017-06-11 10:08] VITALS: BP 119/72
[2017-06-11] MEDS ORDERED: POTASSIUM CHL 40 MEQ in SODIUM CHLORIDE 0.9% 250ML 250 ML IV ONE (10:50)
[2017-06-11 12:00] VITALS: BP 127/74
[2017-06-11] MEDS: LORAZEPAM INJ 2 MG/ML VIAL IV PRN (13:55)
[2017-06-11] MEDS: FLUCONAZOLE 200 MG/100 ML 100 ML IV SCH (16:04)
[2017-06-11 16:14] VITALS: BP 119/73
[2017-06-11] MEDS ORDERED: CENTRAL TPN FORMULA 1 BAG IV SCH (20:00)
== END 2017-06-11 16:53 | disposition short-term general hospital (02) | DRG 871 ==
LOC: ER 09:03 → ERHOLD 12:52 → MED/SURG 06-07 15:30
PROVIDERS: ADMIT Family Medicine; ATTEND Family Medicine
PROC: 02HV33Z Insertion of Infusion Device into Superior Vena Cava, Percutaneous Approach (ICD-10-PCS; principal; 2017-06-10)
DX: A41.9 Sepsis, unspecified organism (principal); K85.20 Alcohol induced acute pancreatitis without necrosis or infection; G92 Toxic encephalopathy; F10.231 Alcohol dependence with withdrawal delirium; E87.1 Hypo-osmolality and hyponatremia; I48.92 Unspecified atrial flutter; K86.0 Alcohol-induced chronic pancreatitis; J44.9 Chronic obstructive pulmonary disease, unspecified; E86.0 Dehydration; R41.0 Disorientation, unspecified; Y90.9 Presence of alcohol in blood, level not specified; I25.10 Atherosclerotic heart disease of native coronary artery without angina pectoris; K27.9 Peptic ulcer, site unspecified, unspecified as acute or chronic, without hemorrhage or perforation; I10 Essential (primary) hypertension; I12.9 Hypertensive chronic kidney disease with stage 1 through stage 4 chronic kidney disease, or unspecified chronic kidney disease; N18.3 Chronic kidney disease, stage 3 (moderate)
CPT/HCPCS: 36415; 36569; 36600; 71045; 71046; 74176; 74177; 76604; 76705; 80053; 80061; 80202; 81001; 82150; 82270; 82330; 82550; 82553; 82805; 83540; 83605; 83690; 83735; 83880; 84100; 84132; 84436; 84443; 84466; 84479; 84484; 85025; 85379; 85610; 85730; 93005; 93306; 97139; 99284; J1450; J2060; J2185; J2405; J2543; J3370; J3411; J3480; J7030; J7050; Q9967

== ENCOUNTER 2017-10-22 13:25 | Emergency (ER) | payer MEDICARE ==
[~2017-10-22] VITALS: Ht 177.8 cm; Wt 82.6 kg
[2017-10-22] MEDS ORDERED: HEPARIN 25,000 UNIT/D5W 250ML 250 ML IV STA (14:41)
[2017-10-22 14:44] LABS: BASOPHILS # (AUTO) 0.1 (0.0-0.1); BASOPHILS % 0.3 % (0.0-1.0); EOSINOPHILS % 0.2 % (0.0-6.0); HEMOGLOBIN 10.8 g/dL (14.0-18.0); LYMPHOCYTES # (AUTO) 1.5 (1.0-3.2); LYMPHOCYTES % 8.3 % (18.0-39.1); MEAN CORPUSCULAR HEMOGLOBIN 24.5 pg (28-32); MEAN CORPUSCULAR HGB CONC 31.8 g/dL (31-35); MEAN CORPUSCULAR VOLUME 77.3 fL (81-99); MONOCYTES # (AUTO) 1.3 (0.2-0.8); MONOCYTES % 7.2 % (4.4-11.3); NEUTROPHILS # (AUTO) 15.4 (2.1-6.9); NEUTROPHILS % 83.1 % (38.7-80.0); PLATELET COUNT 151 x10e3/uL (140-360); RED CELL DISTRIBUTION WIDTH 18.1 % (11.7-14.4)
[2017-10-22 14:55] LABS: INR 1.25; PROTHROMBIN TIME 14.8 seconds (11.9-14.5)
[2017-10-22 14:56] LABS: PARTIAL THROMBOPLASTIN TIME 41.1 seconds (23.8-35.5)
[2017-10-22] MEDS ORDERED: HEPARIN SOD (PORCINE) 5,000 UNIT/ML VIAL IV ONE (15:00)
[2017-10-22 15:07] LABS: ALBUMIN 2.7 g/dL (3.5-5.0); ALBUMIN/GLOBULIN RATIO 0.5 (0.8-2.0); CALCIUM 10.6 mg/dL (8.4-10.2); CREATININE, SERUM 1.54 mg/dL (0.72-1.25)
[2017-10-22] MEDS: HEPARIN 25,000U/0.45% NS 250ML 1,400 UNIT in SODIUM CHLORIDE 0.9% 250ML 0 ML IV SCH ×2 (15:07→15:58)
[2017-10-22] MEDS ORDERED: SODIUM CHLORIDE 0.9% 1000ML 1,000 ML IV ONE (16:30)
[2017-10-22 16:45] LABS: BILIRUBIN,URINE NEGATIVE (NEGATIVE); CLARITY,URINE SL CLOUDY (CLEAR); COLOR,URINE STRAW (YELLOW); KETONES,URINE NEGATIVE (NEGATIVE); LEUKOCYTE ESTERASE ,URINE NEGATIVE (NEGATIVE); NITRITE,URINE NEGATIVE (NEGATIVE); PROTEIN,URINE DIPSTICK 1+ (NEGATIVE); URINE UROBILINOGEN 0.2 mg/dL (0.2 - 1)
[2017-10-22 16:56] LABS: AMORPHOUS SEDIMENT,URINE FEW (FEW); BACTERIA,URINE FEW /HPF; EPITHELIAL CELLS,URINE RARE /LPF
[2017-10-22] MEDS ORDERED: PANTOPRAZOLE SO40 MG PO (17:13)
[2017-10-22] MEDS ORDERED: COUMADIN1 MG PO (17:13)
[2017-10-22] MEDS ORDERED: FERROUS SULFAT325 MG PO (17:13)
[2017-10-22] MEDS ORDERED: FOLIC ACID1 MG PO (17:13)
[2017-10-22] MEDS ORDERED: CREON DR 12,001 EACH PO (17:13)
[2017-10-22] MEDS ORDERED: VITAMIN D1000 UNI1 PO (17:13)
[2017-10-22] MEDS ORDERED: MEGACE ES625 MG/5 M PO (17:13)
[2017-10-22] MEDS ORDERED: REMERON15 MG PO (17:13)
[2017-10-22] MEDS ORDERED: THIAMINE HCL100 MG PO (17:13)
[2017-10-22] MEDS ORDERED: ASPIRIN 81 MG CHEW TAB PO SCH (18:45)
[2017-10-22] MEDS ORDERED: METOPROLOL SUCCINATE 25 MG TAB XL PO SCH (18:45)
[2017-10-22] MEDS ORDERED: ATORVASTATIN 20 MG TAB PO SCH (18:45)
[2017-10-22] MEDS ORDERED: ATORVASTATIN 40 MG TAB PO SCH (19:00)
[2017-10-22 19:04] VITALS: BP 135/87
--- NOTE | 2017-10-22 20:49 | Consultation ---
DATE OF CONSULTATION: October 22, 2017 CARDIOLOGY CONSULTATION REFERRING PHYSICIAN: Dr. Kamar Norris and Dr. Caesar Mejia REASON FOR CONSULTATION: Acute limb ischemia. HISTORY OF PRESENT ILLNESS: Mr. Mcgee is a pleasant 67-year-old man with history of hypertension, dyslipidemia, COPD, history of alcohol abuse and prior pancreatitis, history of esophageal and duodenal ulcers with prior GI bleeding, who presents with acute-onset pain to the right lower extremity and associated with decreased ability to lift right upper extremity and with tingling of the right foot. In the emergency department, ultrasound was performed excluding a deep venous thrombosis to the right lower extremity, however, confirming an acute thrombotic occlusion of right SFA all the way down to the right dorsalis pedis and posterior tibial arteries with no flow documented by Doppler. Heparin was initiated and I had conversations with ER physician. The patient has noted some improvement in ability to move extremities, sensory-bledsoe remains with tingling. Given threatened limb, elevated creatinine, history of prior bleeding, hemoglobin of 10.8, creatinine of 1.5 and age of 67, alternatives discussed including vascular emergent evaluation as the best alternative for revascularization of his acute limb ischemia particularly given he is not a great candidate for catheter based lysis. REVIEW OF SYSTEMS: Twelve-system review negative except for as noted above. He denies chest pain or shortness of breath. ALLERGIES: TO MELOXICAM REPORTED PER EMR. PAST MEDICAL HISTORY: As per history of present illness. He is status post aortic valve replacement in June [address] Joshua Harrell. There are some past records suggesting he has had a history of atrial flutter; however, when discussing with Gene and his , they were not aware of any prior cardiac history other than aortic valve replacement. FAMILY HISTORY: Noncontributory. SOCIAL HISTORY: Alcohol use. Former smoker. No drugs. PHYSICAL EXAMINATION: VITALS: Temperature 97.6, heart rate 92, respiratory rate 16, blood pressure 160/93, O2 sat 99% on nasal cannula. GENERAL: No acute distress, alert. NECK: No JVD. CHEST: Clear to auscultation. CARDIOVASCULAR: Regular rate and rhythm. Normal S1 and S2. No S3, no S4. Systolic ejection murmur 1/6. ABDOMEN: Soft, nontender. EXTREMITIES: With trace edema to right lower extremity. Nonpalpable right lower extremity pulses. Cold distal right leg and foot; however, able to wiggle toes, flex ankle and knee. On gross touch, able to feel sensation in the forefoot to right lower extremity. CARDIOVASCULAR MEDICATIONS: Reviewed. On heparin IV. Initiating aspirin and atorvastatin as well as low-dose beta manuel. STUDIES: Reviewed, significant for creatinine 1.5, potassium 4, chloride 104, sodium of 139 and BUN of 22. Normal transaminases, troponin I of 0.043. Hemoglobin of 10.8, platelets of 151,000 and white blood cells 18.5. INR 1.25, PTT 41, PT 14.8. EKG: Normal sinus rhythm with a couple of PVCs. Right lower extremity venous ultrasound: Negative for DVT. Right lower extremity arterial Doppler with occluded right SFA down to foot. ASSESSMENT: A 67-year-old man who presented with, 1. Acute limb ischemia and threatened limb. 2. History of gastrointestinal bleed, currently anemic with prior history of duodenal and esophageal ulcers. 3. History of alcohol abuse and prior presentation with delirium tremens on previous admission. 4. History of atrial flutter, paroxysmal per medical records. No strips are currently documenting active atrial flutter. 5. Chronic obstructive pulmonary disease. 6. Hypertension. 7. Dyslipidemia. 8. History of aortic valve replacement at [facility] by Dr. Harrell in the past. 9. Premature ventricular contractions. RECOMMENDATIONS: Overall guarded limb and overall guarded prognosis. Agree with emergent transfer for vascular surgery evaluation. Not a good candidate for tPA given past history. Recommend adding aspirin, atorvastatin and low-dose metoprolol. Continue IV heparin for now. The patient will need to be further evaluated for chronic long-term anticoagulation in the setting of atrial flutter. Further studies including echocardiogram deferred for after transfer which has been initiated with the patient being accepted to the [facility]. Job#: [id number]
== END 2017-10-22 19:03 | disposition other institution (70) ==
LOC: ER 13:25
DX: M79.661 Pain in right lower leg (principal); I74.3 Embolism and thrombosis of arteries of the lower extremities; R26.2 Difficulty in walking, not elsewhere classified; I73.9 Peripheral vascular disease, unspecified; S51.012A Laceration without foreign body of left elbow, initial encounter; I10 Essential (primary) hypertension; E78.5 Hyperlipidemia, unspecified
CPT/HCPCS: 36415; 80053; 81001; 82550; 82553; 84484; 85025; 85610; 85730; 87086; 93005; 93926; 93971; 99284; J1644 ×2; J7030; J7050

== ENCOUNTER → 2017-12-24 | Day surgery (SDC) | payer MEDICARE ==
[2017-12-23 11:04] LABS: BASOPHILS # (AUTO) 0.1 (0.0-0.1); BASOPHILS % 0.9 % (0.0-1.0); EOSINOPHILS # (AUTO) 0.7 (0.0-0.4); EOSINOPHILS % 4.9 % (0.0-6.0); HEMATOCRIT 31.8 % (38.2-49.6); HEMOGLOBIN 9.5 g/dL (14.0-18.0); LYMPHOCYTES # (AUTO) 3.1 (1.0-3.2); MEAN CORPUSCULAR HEMOGLOBIN 25.3 pg (28-32); MEAN CORPUSCULAR HGB CONC 29.9 g/dL (31-35); MEAN CORPUSCULAR VOLUME 84.6 fL (81-99); MONOCYTES # (AUTO) 1.5 (0.2-0.8); MONOCYTES % 10.8 % (4.4-11.3); NEUTROPHILS # (AUTO) 8.7 (2.1-6.9); PLATELET COUNT 371 x10e3/uL (140-360); RED BLOOD COUNT 3.76 x10e6/uL (4.3-5.7); RED CELL DISTRIBUTION WIDTH 19.3 % (11.7-14.4)
[2017-12-23 11:37] LABS: INR 1.37; PROTHROMBIN TIME 15.9 seconds (11.9-14.5)
[2017-12-23 11:38] LABS: PARTIAL THROMBOPLASTIN TIME 35.9 seconds (23.8-35.5)
[2017-12-23 16:12] LABS: EOSINOPHILS % (MANUAL) 5 % (0-7); HYPOCHROMASIA MODERATE; LYMPHOCYTES % (MANUAL) 14 % (19-48); MONOCYTES % (MANUAL) 9 % (3.4-9.0); NEUTROPHILS % (MANUAL) 66 % (40-74); PLATELET ESTIMATE SLIGHTLY INCREASED; PLATELET MORPHOLOGY COMMENT NORMAL; RBC MORPHOLOGY COMMENT NORMAL
[~2017-12-24] MED LIST changes: +AMIODARONE HCL200 MG PO; +ATORVASTATIN CA20 MG PO; +COUMADIN1 MG PO; +CREON DR 12,001 EACH PO; +FENTANYL CITRATE/PF 100MCG/2 ML INJ ONE; +FERROUS SULFAT325 MG PO; +FOLIC ACID1 MG PO; +LOVENOX60 MG/0.6 SC; +MEGACE ES625 MG/5 M PO; +PANTOPRAZOLE SO40 MG PO; +PEPCID20 MG PO; +PROPOFOL IV EMULSION 10 MG/ML 50 ML VIAL ONE; +REMERON15 MG PO; +THIAMINE HCL100 MG PO; +VITAMIN D1000 UNI1 PO; +ZYRTEC-D TABLE1 EACH PO
[2017-12-24 08:04] LABS: BASOPHILS # (AUTO) 0.1 (0.0-0.1); BASOPHILS % 0.7 % (0.0-1.0); EOSINOPHILS # (AUTO) 0.8 (0.0-0.4); EOSINOPHILS % 4.8 % (0.0-6.0); HEMATOCRIT 31.6 % (38.2-49.6); HEMOGLOBIN 9.6 g/dL (14.0-18.0); LYMPHOCYTES # (AUTO) 2.4 (1.0-3.2); LYMPHOCYTES % 14.6 % (18.0-39.1); MEAN CORPUSCULAR HEMOGLOBIN 25.3 pg (28-32); MEAN CORPUSCULAR HGB CONC 30.4 g/dL (31-35); MEAN CORPUSCULAR VOLUME 83.4 fL (81-99); MONOCYTES # (AUTO) 1.4 (0.2-0.8); MONOCYTES % 8.5 % (4.4-11.3); NEUTROPHILS # (AUTO) 11.8 (2.1-6.9); NEUTROPHILS % 70.9 % (38.7-80.0); PLATELET COUNT 344 x10e3/uL (140-360); RED BLOOD COUNT 3.79 x10e6/uL (4.3-5.7); RED CELL DISTRIBUTION WIDTH 19.5 % (11.7-14.4)
[2017-12-24 08:11] LABS: INR 1.32; PARTIAL THROMBOPLASTIN TIME 32.6 seconds (23.8-35.5); PROTHROMBIN TIME 15.4 seconds (11.9-14.5)
[2017-12-24 10:05] VITALS: BP 101/68
--- NOTE | 2017-12-24 10:23 | Operative Report ---
DATE OF PROCEDURE: December 24, 2017 PROCEDURE PERFORMED: Esophagogastroduodenoscopy with polypectomy and brushings. REFERRING PHYSICIAN: Dr. Ramos Barcenas INDICATIONS FOR EGD: History of melena. MEDICATION: Patient was done under MAC. Please see anesthesiologist note. PROCEDURE IN DETAIL: With the patient in left lateral decubitus position, the flexible fiberoptic Olympus gastroscope was introduced into the esophagus under direct visualization without any difficulty. There was some patchy erythema noted in distal esophagus. A minute tongue of velvety red mucosa was noted to extend proximally from the GE junction and that was brushed and sent to rule out Stern's. No biopsies were obtained as patient will need to be back on his blood thinners. The scope was then advanced with ease into the stomach traversing a moderate-size hiatal hernia. Mucosa overlying the antrum and the body revealed some patchy erythema. The pylorus was intubated with ease and the scope was advanced all the way to the second portion of the duodenum. Approximately 1-cm sessile polypoid lesion was noted in the second portion of the duodenum and that was removed per snare electrocautery. The mucosa overlying the duodenal bulb appeared to be within normal limits. The scope was then withdrawn back into the stomach and retroflexed. Mucosa overlying the fundus appeared to be within normal limits. The previously described hiatal hernia was also noted in the retroflexed position. The scope was then straightened out. It was subsequently withdrawn. Patient tolerated the procedure well. IMPRESSION: 1. Distal esophagitis, mild. 2. Rule out Stern's esophagus. 3. Moderate-size hiatal hernia. 4. Gastritis, mild. 5. Approximately 1-cm sessile polypoid lesion, second portion of duodenum, removed per snare electrocautery. PLAN: Follow up histology. Increase Protonix to 40 mg 1 p.o. a.c. b.i.d. Findings do not necessarily explain patient's history of melena. Patient might benefit from small bowel series, and if negative and the melena recurs on the blood thinners, he might need a colonoscopy. Job#: [id number] cc:RAMOS BARCENAS MD
--- NOTE | 2017-12-24 10:31 | Diagnostic Imaging Report ---
PROCEDURE: CHEST SINGLE (PORTABLE) COMPARISON: None. INDICATIONS: STATUS POST EGD FINDINGS: LUNGS: No consolidations or edema. There is no subdiaphragmatic air. PLEURA: No effusions or pneumothorax. HEART \T\ MEDIASTINUM: The heart is within normal size-limits. Calcification within the thoracic aorta. The retrocardiac stent-like device likely represents an excluder. BONES \T\ SOFT TISSUES: No acute findings. Deformity of a left lower rib compatible with an old fracture. CONCLUSION: No acute thoracic abnormality. Taz Latif D.O. Dictated by: Taz Latif D.O. on 12/24/2017 at 10:38 Electronically approved by: Taz Latif D.O. on 12/24/2017 at 10:38
[2017-12-24 10:43] LABS: CLARITY,URINE CLEAR (CLEAR); COLOR,URINE YELLOW (YELLOW); LEUKOCYTE ESTERASE ,URINE NEGATIVE (NEGATIVE); NITRITE,URINE NEGATIVE (NEGATIVE)
[2017-12-24 10:44] LABS: BILIRUBIN,URINE NEGATIVE (NEGATIVE); KETONES,URINE NEGATIVE (NEGATIVE); PROTEIN,URINE DIPSTICK TRACE (NEGATIVE); URINE UROBILINOGEN 0.2 mg/dL (0.2 - 1)
== END | disposition home or self-care (01) ==
LOC: OR 07:08
PROVIDERS: ATTEND Internal Medicine Gastroenterology
DX: K29.70 Gastritis, unspecified, without bleeding (principal); K31.7 Polyp of stomach and duodenum; K20.9 Esophagitis, unspecified; K22.8 Other specified diseases of esophagus; K21.9 Gastro-esophageal reflux disease without esophagitis; K44.9 Diaphragmatic hernia without obstruction or gangrene; J44.9 Chronic obstructive pulmonary disease, unspecified; I10 Essential (primary) hypertension; G47.33 Obstructive sleep apnea (adult) (pediatric); I48.91 Unspecified atrial fibrillation; I44.0 Atrioventricular block, first degree; Z88.8 Allergy status to other drugs, medicaments and biological substances; Z01.810 Encounter for preprocedural cardiovascular examination; Z01.812 Encounter for preprocedural laboratory examination; Z79.01 Long term (current) use of anticoagulants; Z79.82 Long term (current) use of aspirin
CPT/HCPCS: 36415; 43239; 43251; 71045; 81003; 85025; 85610; 85730; 87086; 88112; 88305; 93005

== ENCOUNTER 2018-03-04 16:13 | Inpatient (IN) | payer MEDICARE ==
[~2018-03-04] VITALS: Ht 177.8 cm; Wt 69.2 kg
[~2018-03-04 16:13] MED LIST changes: -FENTANYL CITRATE/PF 100MCG/2 ML INJ ONE; -PROPOFOL IV EMULSION 10 MG/ML 50 ML VIAL ONE
--- OUTSIDE RECORDS SUMMARY | 2018-03-04 16:17 | XMS REPORT | Continuity of Care Document ---
Author Author [facility] Interface Address Unknown Phone Unavailable Problems Problem Status Onset Date Classification Date Reported Comments Source AORTIC STENOSIS Active 06/10/2016 [facility] PRE ADMIT/*GEN ANESTHESIA*/TAVR CASE/*3D Active 06/10/2016 [facility] AORTIC STENOSIS Active 05/17/2016 [facility] Aortic stenosis Resolved Problem 06/18/2016 [facility] SOB (<span ID="[id number]">Confirmed</span>) Resolved Problem 06/18/2016 [facility] NONRHEUMATIC AORTIC (VALVE) STENOSIS Active [facility] OTHER SPECIFIED CONGENITAL DEFORMITIES Active [facility] Medications Medication Details Route Status Patient Instructions Ordering Provider Order Date Source rivaroxaban 10 mg oral tablet 10 mg=1 tab, PO, Daily, # 30 tab, 1 Refill(s) Active 06/15/2016 [facility] aspirin 81 mg tablet, enteric coated 81 mg=1 tab, PO, Daily, # 30 tab, 0 Refill(s) Active 06/15/2016 [facility] pravastatin 40 mg oral tablet 40 mg=1 tab, PO, Bedtime, # 30 tab, 0 Refill(s) Active 06/15/2016 [facility] 24 HR Nifedipine 30 MG Extended Release Tablet [Procardia] 30 mg=1 tab, PO, Daily, # 30 tab, 0 Refill(s) Active 06/15/2016 [facility] 24 HR Metoprolol Tartrate 100 MG Extended Release Tablet [Toprol] 100 mg=1 tab, PO, Q12H, # 60 tab, 0 Refill(s) Active 06/15/2016 [facility] lisinopril 20 mg oral tablet 40 mg=2 tab, PO, Daily, # 60 tab, 0 Refill(s) Active 06/15/2016 [facility] urea powder urea powder, 15gms, Route: PO, Q12H, Priority: NOW, 06/15/16 11:31:00 STATION WORKER, Duration: 2 day, Stop date: 06/17/16 9:00:00 CDT Inactive 06/15/2016 [facility] Lisinopril 40 mg, 2 tab, Route: PO, Drug form: TAB, Daily, Dosing Weight 77.545, kg, Start date: 06/15/16 9:00:00 STATION WORKER, Duration: 30 day, Stop date: 07/14/16 9:00:00 CDTNotes: (Same as: Prinivil, Zestril) Inactive 06/15/2016 [facility] 24 HR Nifedipine 30 MG Extended Release Tablet [Procardia] 30 mg, 1 tab, Route: PO, Drug form: ERTAB, ONCE, Dosing Weight 77.545, kg, Start date: 06/14/16 21:55:00 STATION WORKER, Stop date: 06/14/16 21:55:00 CSTNotes: (Same as: Adalat CC, Procardia XL) Give on empty stomach. Take 1 hour before or 2 hours after meal; "Avoid grapefruit and grapefruit juice". Inactive 06/15/2016 [facility] 24 HR Nifedipine 30 MG Extended Release Tablet [Procardia] 30 mg, 1 tab, Route: PO, Drug form: ERTAB, Daily, Dosing Weight 77.545, kg, Start date: 06/14/16 17:43:00 STATION WORKER, Duration: 30 day, Stop date: 07/14/16 9:00:00 CDTNotes: (Same as: Adalat CC, Procardia XL) Give on empty stomach. Take 1 hour before or 2 hours after meal; "Avoid grapefruit and grapefruit juice". Do not crush No Longer Active 06/14/2016 [facility] IDS med 10 mg, 1 tab, Route: PO, Drug form: TAB, Daily, Start date: 06/14/16 12:30:00 STATION WORKER, Duration: 30 day, Stop date: 07/14/16 9:00:00 CDT No Longer Active 06/14/2016 [facility] Lisinopril 20 mg, 1 tab, Route: PO, Drug form: TAB, ONCE, Dosing Weight 77.545, kg, Start date: 06/14/16 9:19:00 STATION WORKER, Stop date: 06/14/16 9:19:00 CSTNotes: (Same as: Prinivil, Zestril) Inactive 06/14/2016 [facility] lisinopril 10 mg, 1 tab, Route: PO, Drug form: TAB, Q24H, Start date: 06/14/16 9:00:00 STATION WORKER, Duration: 30 day, Stop date: 07/13/16 9:00:00 CDTNotes: (Same as: Prinivil, Zestril) No Longer Active 06/14/2016 [facility] Perindopril 4 mg, Route: PO, Drug form: TAB, Daily, Dosing Weight 77.545, kg, Start date: 06/14/16 9:00:00 STATION WORKER, Duration: 30 day, Stop date: 07/13/16 9:00:00 CDT No Longer Active 06/14/2016 [facility] POLYETHYLENE GLYCOL 3350 17 gm, 1 pkt, Route: PO, Drug form: PWDR, Daily, Dosing Weight 77.545, kg, Start date: 06/14/16 9:00:00 STATION WORKER, Duration: 30 day, Stop date: 07/13/16 9:00:00 CDTNotes: Dissolve in 8 oz of water or juice. (Same as: Miralax) No Longer Active 06/14/2016 [facility] pantoprazole 40 mg, 1 tab, Route: PO, Drug form: ECTAB, Daily, Dosing Weight 77.545, kg, Start date: 06/14/16 9:00:00 STATION WORKER, Duration: 30 day, Stop date: 07/13/16 9:00:00 CDTNotes: Tablet should not be chewed or cr ushed. (Same as: Protonix) No Longer Active 06/14/2016 [facility] aspirin 81 mg tablet, enteric coated 81 mg, 1 tab, Route: PO, Drug form: ECTAB, Daily, Dosing Weight 77.545, kg, Start date: 06/14/16 9:00:00 STATION WORKER, Duration: 30 day, Stop date: 07/13/16 9:00:00 CDTNotes: Do not crush or chew. (Same As: Ecotrin) No Longer Active 06/14/2016 [facility] lisinopril 20 mg, 1 tab, Route: PO, Drug form: TAB, Daily, Start date: 06/14/16 6:20:00 STATION WORKER, Duration: 30 day, Stop date: 07/13/16 9:00:00 CDTNotes: (Same as: Prinivil, Zestril) Inactive 06/14/2016 [facility] 24 HR Metoprolol Tartrate 50 MG Extended Release Tablet [Toprol] 100 mg, 1 tab, Route: PO, Drug form: ERTAB, Q12H, Start date: 06/14/16 6:20:00 STATION WORKER, Duration: 30 day, Stop date: 07/13/16 21:00:00 CDTNotes: (Same as: Toprol XL) May split tab, but do not crush. No Longer Active 06/14/2016 [facility] metoprolol extended release 50 mg, 1 tab, Route: PO, Drug form: ERTAB, ONCE, Start date: 06/13/16 21:16:00 STATION WORKER, Stop date: 06/13/16 21:16:00 CSTNotes: (Same as: Toprol XL) May split tab, but do not crush. No Longer Active 06/14/2016 [facility] Lisinopril 10 mg, 1 tab, Route: PO, Drug form: TAB, ONCE, Dosing Weight 77.545, kg, Start date: 06/13/16 21:15:00 STATION WORKER, Stop date: 06/13/16 21:15:00 CSTNotes: (Same as: Prinivil, Zestril) Inactive 06/14/2016 [facility] Pravastatin 40 mg, 2 tab, Route: PO, Drug form: TAB, Bedtime, Dosing Weight 77.545, kg, Start date: 06/13/16 21:00:00 STATION WORKER, Duration: 30 day, Stop date: 07/12/16 21:00:00 CDTNotes: (Same as: Pravachol) No Longer Active 06/14/2016 [facility] heparin 5,000 unit, 1 mL, Route: SUB-Q, Drug form: INJ, Q12H, Dosing Weight 77.545, kg, Start date: 06/13/16 21:00:00 STATION WORKER, Duration: 30 day, Stop date: 07/13/16 9:00:00 CDTNotes: porcine heparin No Longer Active 06/14/2016 [facility] Docusate 100 mg, 1 cap, Route: PO, Drug form: CAP, Q12H, Dosing Weight 77.545, kg, Start date: 06/13/16 21:00:00 STATION WORKER, Duration: 30 day, Stop date: 07/13/16 9:00:00 CDTNotes: (Same as: Colace) (Do Not Crush) No Longer Active 06/14/2016 [facility] Cefazolin 1 gm, Route: IVPB, Drug form: PDR/INJ, Q12H, Dosing Weight 77.545, kg, Start date: 06/13/16 21:00:00 STATION WORKER, Duration: 1 doses or times, Stop date: 06/13/16 21:00:00 CSTNotes: (Same As: Mitchel Martinezfzodarling) MEDICATION WASTE Product Size: 1000 mg Product Wasted: ___ mg Inactive 06/14/2016 [facility] 24 HR Metoprolol Tartrate 50 MG Extended Release Tablet [Toprol] 50 mg, 1 tab, Route: PO, Drug form: ERTAB, Q12H, Start date: 06/13/16 17:19:00 STATION WORKER, Duration: 30 day, Stop date: 07/13/16 9:00:00 CDTNotes: (Same as: Toprol XL) May split tab, but do not crush. Inactive 06/13/2016 [facility] lisinopril 10 mg, 1 tab, Route: PO, Drug form: TAB, ONCE, Start date: 06/13/16 15:37:00 STATION WORKER, Stop date: 06/13/16 15:37:00 CSTNotes: (Same as: Prinivil, Zestril) Inactive 06/13/2016 [facility] Perindopril 4 mg, Route: PO, Drug form: TAB, ONCE, Dosing Weight 77.545, kg, Start date: 06/13/16 15:03:00 STATION WORKER, Stop date: 06/13/16 15:03:00 STATION WORKER Inactive 06/13/2016 [facility] Calcium Carbonate 500 MG Chewable Tablet 500 mg, 1 tab, Route: PO, Drug form: CHEWTAB, PRN, Dosing Weight 77.545, kg, PRN Abnormal Lab Result, FOR ICU USE ONLY, Start date: 06/13/16 9:43:00 STATION WORKER, Duration: 30 day, Stop date: 07/13/16 10:42:00 CDTNotes: (Same As: Tums) Calcium Carbonate 500 te=071 mg elemental calcium Dose= mg calcium carbonate ( mg elemental calcium) No Longer Active 06/13/2016 [facility] potassium phosphate + sodium chloride 0.9% INJ 250 mL 15 mmol, 5 mL, Route: IVPB, PRN, Dosing Weight 77.545, kg, PRN Abnormal Lab Result, Start date: 06/13/16 9:43:00 STATION WORKER, Duration: 30 day, Stop date: 07/13/16 10:42:00 CDT, FOR ICU USE ONLYNotes: (Same as: K Phosphate.) 1 mMol phoshate has 1.47 mEq potassium Infuse over 4 hours No Longer Active 06/13/2016 [facility] sodium phosphate + sodium chloride 0.9% INJ 250 mL 15 mmol, 5 mL, Route: IVPB, PRN, Dosing Weight 77.545, kg, PRN Abnormal Lab Result, Start date: 06/13/16 9:43:00 STATION WORKER, Duration: 30 day, Stop date: 07/13/16 10:42:00 CDT, FOR ICU USE ONLY No Longer Active 06/13/2016 [facility] potassium chloride 10 mEq, 50 mL, Route: IVPB, Drug form: INJ, PRN, Dosing Weight 77.545, kg, PRN Abnormal Lab Result, Via peripheral line, Start date: 06/13/16 9:43:00 STATION WORKER, Duration: 30 day, Stop date: 07/13/16 10:42:00 CDT, FOR ICU USE ONLYNotes: (Same as: KCL) Infuse over 2 hours. No Longer Active 06/13/2016 [facility] potassium phosphate-sodium phosphate 250 mg-280 mg-160 mg oral powder for reconstitution 2 pkt, Route: PO, Drug Form: PDR/REC, Dosing Weight 77.545, kg, PRN, PRN Abnormal Lab Result, FOR ICU USE ONLY, Start date: 06/13/16 9:43:00 STATION WORKER, Duration: 30 day, Stop date: 07/13/16 10:42:00 CDTNotes: (Same as: Phos-NaK) Each 1.5 gm pkt has 250mg phosphorous. Mix w/2.5oz water and stir. No Longer Active 06/13/2016 [facility] Magnesium Sulfate 2 gm, 50 mL, Route: IVPB, Drug form: INJ, PRN, Dosing Weight 77.545, kg, PRN Abnormal Lab Result, Start date: 06/13/16 9:43:00 STATION WORKER, Duration: 30 day, Stop date: 07/13/16 10:42:00 CDT, FOR ICU USE ONLYNotes: WASTE: F/P - Sink; E - Municipal Trash Bin No Longer Active 06/13/2016 [facility] Magnesium Oxide 800 mg, 2 tab, Route: PO, Drug form: TAB, PRN, Dosing Weight 77.545, kg, PRN Abnormal Lab Result, FOR ICU USE ONLY, Start date: 06/13/16 9:43:00 STATION WORKER, Duration: 30 day, Stop date: 07/13/16 10:42:00 CD TNotes: (Same as: Mag-Ox 400) Magnesium oxide [id number] elemental magnesium Dose=____mg magnesium oxide (___mg elemental magnesium) No Longer Active 06/13/2016 [facility] Calcium Gluconate 1 gm, 10 mL, Route: IVPB, PRN, Dosing Weight 77.545, kg, PRN Abnormal Lab Result, Start date: 06/13/16 9:43:00 STATION WORKER, Duration: 30 day, Stop date: 07/13/16 10:42:00 CDT, FOR ICU USE ONLYNotes: WASTE: F/P - Sink; E - Municipal Trash Bin No Longer Active 06/13/2016 [facility] Ondansetron 4 mg, 2 mL, Route: IVP, Drug form: INJ, Q8H, Dosing Weight 77.545, kg, PRN Nausea & Vomiting, Start date: 06/13/16 9:40:00 STATION WORKER, Duration: 30 day, Stop date: 07/13/16 9:39:00 CDTNotes: (Same as: Isaac) MEDICATION WASTE Product Size: 4 mg Product Wasted: ___ mg No Longer Active 06/13/2016 [facility] Acetaminophen 1,000 mg, 100 mL, Route: IVPB, Drug form: INJ, ONCE, Dosing Weight 77.545, kg, PRN Pain Score 1-3, Start date: 06/13/16 9:40:00 CSTNotes: Infuse over 15 minutes Do not exceed 4gm/day of acetaminophen MEDICATION WASTE Product Size: 1000 mg Product Wasted: ___ mg No Longer Active 06/13/2016 [facility] Nicardipine 40 mg, 200 mL, Rate: Titrate, Start Dose: 5 mg/hr, Titration: 2mg every 15 minutes PRN, Goal(s): maintain MAP 75-85 mmHg, Max Dose: 15mg/hr, Route: IV, Dosing Weight 77.545 kg, Total Volume: 200, Start date: 06/13/16 9:40:00 STATION WORKER, Duration: 30 day, Sto...Notes: Same as: Cardene Concentration: (0.2 mg /1 ml ) No Longer Active 06/13/2016 [facility] Exparel 20 mL, Route: InFILtration(local), Drug Form: INJ, Dosing Weight 79.545, kg, ONCALL, global implementation manager to labor relations manager, Start date: 06/13/16 7:00:00 STATION WORKER, Duration: 1 day, Stop date: 06/14/16 6:59:00 CSTNotes: (Same as: Exparel) NOT FOR IV use Postoperative analgesia: Infiltration (local): Dose is based on surgical site and volume required to cover the area (in general, the maximum total dose is 266 mg). Bunionectomy: 7 mL into the tissues surrounding the osteotomy and 1 mL into the subcutaneous tissue of the surgical site (total dose=8 mL [106 mg]) Hemorrhoidectomy: 30 mL (20 mL vial diluted with 10 mL NS) divided and administered as 6 injections of 5 mL each (total dose=30 mL [266 mg]) No Longer Active 06/13/2016 [facility] Sodium Chloride 0.154 MEQ/ML Injectable Solution 250 mL, Infuse Over: 1 hr, Route: IV, ONCALL, Priority: Routine, Dosing Weight 79.545 kg, Start date: 06/13/16 7:00:00 STATION WORKER, Duration: 1 doses or times Inactive 06/13/2016 [facility] Sodium Chloride 0.154 MEQ/ML Injectable Solution 500 mL, 500 ml/hr, Infuse Over: 1 hr, Route: IV, 500, Drug form: INJ, ONCE, Priority: STAT, Dosing Weight 77.545 kg, Start date: 06/13/16 6:44:00 STATION WORKER, Duration: 1 doses or times, Stop date: 06/13/16 6:44:00 STATION WORKER Inactive 06/13/2016 [facility] Labetalol 10 mg, 2 mL, Route: IV, Drug form: INJ, ONCE, Dosing Weight 77.545, kg, Start date: 06/13/16 6:43:00 STATION WORKER, Stop date: 06/13/16 6:43:00 STATION WORKER Inactive 06/13/2016 [facility] niacin 500 mg oral tablet 1,500 mg=3 tab, PO, Daily, # 180 tab, 0 Refill(s) Active 06/13/2016 [facility] Zyrtec Daily, 0 Refill(s) Active 06/13/2016 [facility] pravastatin 40 mg oral tablet 40 mg=1 tab, PO, Bedtime, # 30 tab, 0 Refill(s) No Longer Active 06/13/2016 [facility] perindopril 4 mg oral tablet 4 mg=1 tab, PO, Daily, # 30 tab, 0 Refill(s) No Longer Active 06/13/2016 [facility] Acetaminophen 325 MG / Hydrocodone Bitartrate 7.5 MG Oral Tablet [[place] 7.5/325] 1-2 tab, PO, Q4-6H, PRN Pain, # 30 tab, 0 Refill(s) No Longer Active 06/13/2016 [facility] sodium chloride 0.9% INJ 250 mL 250 mL, Rate: call taker for use with blood product administration, Dosing Weight 79.545, kg, Route: IVPB, Total Volume: 250, Start Date: 06/13/16 6:06:00 STATION WORKER, Duration: 30 day, Stop date: 07/13/16 6:05:00 CDT, Replace Every: 24 hr No Longer Active 06/13/2016 [facility] Sodium Chloride 0.154 MEQ/ML Injectable Solution 750 mL, Rate: 75 ml/hr, Infuse over: 10 hr, Route: IVPB, Dosing Weight 79.545 kg, Total Volume: 750, Start date: 06/13/16 6:06:00 STATION WORKER, Duration: 24 hr, Stop date: 06/14/16 6:05:00 STATION WORKER No Longer Active 06/13/2016 [facility] Allergies, Adverse Reactions, Alerts Substance Category Reaction Severity Reaction type Status Date Reported Comments Source Mobic Assertion Drug allergy Active [facility] Immunizations Immunization Date Given Site Status Last Updated Comments Source Results Order Name Results Value Reference Range Date Interpretation Comments Source CHEM PANEL eGFR 58 mL/min/1.73m2 06/15/2016 Result Comment: The eGFR is calculated using the CKD-EPI formula. In most young, healthy individuals the eGFR will be >90 mL/min/1.73m2. The eGFR declines with age. An eGFR of 60-89 may be normal in some populations, particularly the elderly, for whom the CKD-EPI formula has not been extensively validated. Use of the eGFR is not recommended in the following populations: Individuals with unstable creatinine concentrations, including patients and those with serious co-morbid conditions. Patients with extremes in muscle mass or diet. The data above are obtained from the National Kidney Disease Education Program (NKDEP) which additionally recommends that when the eGFR is used in patients with extremes of body mass index for purposes of drug dosing, the eGFR should be multiplied by the estimated BMI. [facility] CHEM PANEL Sodium Lvl 129 meq/L 135 - 145 06/15/2016 [facility] CHEM PANEL Chloride Lvl 95 meq/L 95 - 109 06/15/2016 [facility] CHEM PANEL Potassium Lvl 4.9 meq/L 3.5 - 5.1 06/15/2016 Result Comment: Slight hemolysis [facility] CHEM PANEL CO2 26 meq/L 24 - 32 06/15/2016 [facility] CHEM PANEL Calcium Lvl 8.8 mg/dL 8.5 - 10.5 06/15/2016 [facility] CHEM PANEL Glucose Lvl 107 mg/dL 70 - 99 06/15/2016 [facility] CHEM PANEL Creatinine Lvl 1.29 mg/dL 0.50 - 1.40 06/15/2016 [facility] CHEM PANEL BUN 15 mg/dL 7 - 22 06/15/2016 [facility] CHEM PANEL AGAP 12.9 meq/L 10.0 - 20.0 06/15/2016 [facility] CHEM PANEL Magnesium Lvl 1.8 mg/dL 1.8 - 2.4 06/15/2016 [facility] CHEM PANEL Phosphorus 2.9 mg/dL 2.5 - 4.5 06/15/2016 [facility] HEMATOLOGY MPV 9.8 fL 7.4 - 10.4 06/15/2016 [facility] HEMATOLOGY Platelet 60 K/CMM 133 - 450 06/15/2016 [facility] HEMATOLOGY RDW 14.7 % 11.5 - 14.5 06/15/2016 [facility] HEMATOLOGY MCHC 33.7 g/dL 32.0 - 36.0 06/15/2016 [facility] HEMATOLOGY Hct 38.5 % 42.0 - 54.0 06/15/2016 [facility] HEMATOLOGY RBC 3.82 M/CMM 4.70 - 6.10 06/15/2016 [facility] HEMATOLOGY Hgb 13.0 g/dL 14.0 - 18.0 06/15/2016 [facility] HEMATOLOGY MCV 100.8 fL 80.0 - 94.0 06/15/2016 [facility] HEMATOLOGY MCH 34.0 pg 27.0 - 31.0 06/15/2016 [facility] HEMATOLOGY WBC 9.2 K/CMM 3.7 - 10.4 06/15/2016 [facility] HEMATOLOGY INR 1.18 0.85 - 1.17 06/15/2016 [facility] HEMATOLOGY PTT 37.0 s 22.9 - 35.8 06/15/2016 [facility] HEMATOLOGY PT 15.2 s 12.0 - 14.7 06/15/2016 [facility] HEMATOLOGY Eosinophils 1.7 % 0.0 - 4.0 06/15/2016 [facility] HEMATOLOGY Monocytes 12.7 % 2.0 - 12.0 06/15/2016 [facility] HEMATOLOGY Lymphocytes 15.9 % 20.0 - 40.0 06/15/2016 [facility] HEMATOLOGY Segs 69.4 % 45.0 - 75.0 06/15/2016 [facility] HEMATOLOGY Basophils 0.3 % 0.0 - 1.0 06/15/2016 [facility] HEMATOLOGY Lymphocytes # 1.5 K/CMM 1.0 - 5.5 06/15/2016 [facility] HEMATOLOGY Segs-Bands # 6.4 K/CMM 1.5 - 8.1 06/15/2016 [facility] HEMATOLOGY Eosinophils # 0.2 K/CMM 0.0 - 0.5 06/15/2016 [facility] HEMATOLOGY Monocytes # 1.2 K/CMM 0.0 - 0.8 06/15/2016 [facility] HEMATOLOGY Macrocyte 1+ *ABN* (06/15/16 5:25 AM) None Seen 06/15/2016 [facility] PARATHYROID PROFILE Ca Norm WB 1.06 mMol/L 1.05 - 1.25 06/15/2016 [facility] PARATHYROID PROFILE Ca Ion WB 1.05 mMol/L 1.05 - 1.25 06/15/2016 [facility] CHEM PANEL Osmolality 277 mOsm/kg 280 - 300 06/14/2016 [facility] ELECTROLYTES Sodium Lvl 128 meq/L 135 - 145 06/14/2016 [facility] URINE CHEM U Potassium 36.3 meq/L 06/14/2016 [facility] URINE CHEM U Sodium 75 meq/L 06/14/2016 [facility] URINE CHEM U Osmolality 330 mOsm/kg 300 - 800 06/14/2016 [facility] CHEM PANEL eGFR 66 mL/min/1.73m2 06/14/2016 Result Comment: The eGFR is calculated using the CKD-EPI formula. In most young, healthy individuals the eGFR will be >90 mL/min/1.73m2. The eGFR declines with age. An eGFR of 60-89 may be normal in some populations, particularly the elderly, for whom the CKD-EPI formula has not been extensively validated. Use of the eGFR is not recommended in the following populations: Individuals with unstable creatinine concentrations, including patients and those with serious co-morbid conditions. Patients with extremes in muscle mass or diet. The data above are obtained from the National Kidney Disease Education Program (NKDEP) which additionally recommends that when the eGFR is used in patients with extremes of body mass index for purposes of drug dosing, the eGFR should be multiplied by the estimated BMI. [facility] CHEM PANEL CO2 26 meq/L 24 - 32 06/14/2016 [facility] CHEM PANEL Chloride Lvl 94 meq/L 95 - 109 06/14/2016 [facility] CHEM PANEL Potassium Lvl 4.3 meq/L 3.5 - 5.1 06/14/2016 [facility] CHEM PANEL AGAP 12.3 meq/L 10.0 - 20.0 06/14/2016 [facility] CHEM PANEL Sodium Lvl 128 meq/L 135 - 145 06/14/2016 [facility] CHEM PANEL Glucose Lvl 143 mg/dL 70 - 99 06/14/2016 [facility] CHEM PANEL BUN 12 mg/dL 7 - 22 06/14/2016 [facility] CHEM PANEL Creatinine Lvl 1.15 mg/dL 0.50 - 1.40 06/14/2016 [facility] CHEM PANEL Calcium Lvl 8.5 mg/dL 8.5 - 10.5 06/14/2016 [facility] CHEM PANEL Magnesium Lvl 2.0 mg/dL 1.8 - 2.4 06/14/2016 [facility] CHEM PANEL Phosphorus 2.2 mg/dL 2.5 - 4.5 06/14/2016 [facility] HEMATOLOGY Heparin Ab(ERIC) Negative (06/14/16 10:05 AM) Negative 06/14/2016 [facility] HEMATOLOGY Pos CO Value 0.493 06/14/2016 [facility] HEMATOLOGY Pat Od Value 0.080 06/14/2016 [facility] CHEM PANEL Magnesium Lvl 2.3 mg/dL 1.8 - 2.4 06/14/2016 [facility] CHEM PANEL Phosphorus 2.7 mg/dL 2.5 - 4.5 06/14/2016 [facility] ELECTROLYTES CO2 24 meq/L 24 - 32 06/14/2016 [facility] ELECTROLYTES Calcium Lvl 8.6 mg/dL 8.5 - 10.5 06/14/2016 [facility] ELECTROLYTES Chloride Lvl 93 meq/L 95 - 109 06/14/2016 [facility] ELECTROLYTES BUN 12 mg/dL 7 - 22 06/14/2016 [facility] ELECTROLYTES Potassium Lvl 3.9 meq/L 3.5 - 5.1 06/14/2016 [facility] ELECTROLYTES Glucose Lvl 118 mg/dL 70 - 99 06/14/2016 [facility] ELECTROLYTES Creatinine Lvl 1.14 mg/dL 0.50 - 1.40 06/14/2016 [facility] ELECTROLYTES eGFR 67 mL/min/1.73m2 06/14/2016 Result Comment: The eGFR is calculated using the CKD-EPI formula. In most young, healthy individuals the eGFR will be >90 mL/min/1.73m2. The eGFR declines with age. An eGFR of 60-89 may be normal in some populations, particularly the elderly, for whom the CKD-EPI formula has not been extensively validated. Use of the eGFR is not recommended in the following populations: Individuals with unstable creatinine concentrations, including patients and those with serious co-morbid conditions. Patients with extremes in muscle mass or diet. The data above are obtained from the National Kidney Disease Education Program (NKDEP) which additionally recommends that when the eGFR is used in patients with extremes of body mass index for purposes of drug dosing, the eGFR should be multiplied by the estimated BMI. [facility] ELECTROLYTES AGAP 14.9 meq/L 10.0 - 20.0 06/14/2016 [facility] HEMATOLOGY PTT 35.7 s 22.9 - 35.8 06/14/2016 [facility] HEMATOLOGY PT 13.4 s 12.0 - 14.7 06/14/2016 [facility] HEMATOLOGY INR 1.00 0.85 - 1.17 06/14/2016 [facility] HEMATOLOGY MCHC 33.6 g/dL 32.0 - 36.0 06/14/2016 [facility] HEMATOLOGY RDW 14.8 % 11.5 - 14.5 06/14/2016 [facility] HEMATOLOGY MPV 8.6 fL 7.4 - 10.4 06/14/2016 [facility] HEMATOLOGY Platelet 82 K/CMM 133 - 450 06/14/2016 [facility] HEMATOLOGY MCH 33.4 pg 27.0 - 31.0 06/14/2016 [facility] HEMATOLOGY MCV 99.5 fL 80.0 - 94.0 06/14/2016 [facility] HEMATOLOGY RBC 4.08 M/CMM 4.70 - 6.10 06/14/2016 [facility] HEMATOLOGY WBC 10.8 K/CMM 3.7 - 10.4 06/14/2016 [facility] HEMATOLOGY Hct 40.6 % 42.0 - 54.0 06/14/2016 [facility] HEMATOLOGY Hgb 13.7 g/dL 14.0 - 18.0 06/14/2016 [facility] HEMATOLOGY Basophils 0.7 % 0.0 - 1.0 06/14/2016 [facility] HEMATOLOGY Segs-Bands # 8.1 K/CMM 1.5 - 8.1 06/14/2016 [facility] HEMATOLOGY Lymphocytes # 1.0 K/CMM 1.0 - 5.5 06/14/2016 [facility] HEMATOLOGY Monocytes # 1.6 K/CMM 0.0 - 0.8 06/14/2016 [facility] HEMATOLOGY Monocytes 14.9 % 2.0 - 12.0 06/14/2016 [facility] HEMATOLOGY Eosinophils 0.2 % 0.0 - 4.0 06/14/2016 [facility] HEMATOLOGY Lymphocytes 9.2 % 20.0 - 40.0 06/14/2016 [facility] HEMATOLOGY Basophils # 0.1 K/CMM 0.0 - 0.2 06/14/2016 [facility] HEMATOLOGY Segs 75.0 % 45.0 - 75.0 06/14/2016 [facility] PARATHYROID PROFILE Ca Ion WB 1.05 mMol/L 1.05 - 1.25 06/14/2016 [facility] PARATHYROID PROFILE Ca Norm WB 1.09 mMol/L 1.05 - 1.25 06/14/2016 [facility] HEMATOLOGY RBC 3.86 M/CMM 4.70 - 6.10 06/13/2016 [facility] HEMATOLOGY WBC 9.6 K/CMM 3.7 - 10.4 06/13/2016 [facility] HEMATOLOGY Hct 38.9 % 42.0 - 54.0 06/13/2016 [facility] HEMATOLOGY Hgb 13.1 g/dL 14.0 - 18.0 06/13/2016 [facility] HEMATOLOGY MCV 100.7 fL 80.0 - 94.0 06/13/2016 [facility] HEMATOLOGY MCH 33.9 pg 27.0 - 31.0 06/13/2016 [facility] HEMATOLOGY MPV 8.5 fL 7.4 - 10.4 06/13/2016 [facility] HEMATOLOGY RDW 15.1 % 11.5 - 14.5 06/13/2016 [facility] HEMATOLOGY Platelet 104 K/CMM 133 - 450 06/13/2016 [facility] HEMATOLOGY MCHC 33.6 g/dL 32.0 - 36.0 06/13/2016 [facility] HEMATOLOGY Basophils # 0.1 K/CMM 0.0 - 0.2 06/13/2016 [facility] HEMATOLOGY Macrocyte 1+ *ABN* (06/13/16 12:00 PM) None Seen 06/13/2016 [facility] HEMATOLOGY Segs 81.5 % 45.0 - 75.0 06/13/2016 [facility] HEMATOLOGY Eosinophils 1.0 % 0.0 - 4.0 06/13/2016 [facility] HEMATOLOGY Monocytes 8.5 % 2.0 - 12.0 06/13/2016 [facility] HEMATOLOGY Lymphocytes 8.4 % 20.0 - 40.0 06/13/2016 [facility] HEMATOLOGY Basophils 0.6 % 0.0 - 1.0 06/13/2016 [facility] HEMATOLOGY Monocytes # 0.8 K/CMM 0.0 - 0.8 06/13/2016 [facility] HEMATOLOGY Lymphocytes # 0.8 K/CMM 1.0 - 5.5 06/13/2016 [facility] HEMATOLOGY Eosinophils # 0.1 K/CMM 0.0 - 0.5 06/13/2016 [facility] HEMATOLOGY Segs-Bands # 7.9 K/CMM 1.5 - 8.1 06/13/2016 [facility] HEMATOLOGY PTT 37.9 s 22.9 - 35.8 06/13/2016 [facility] HEMATOLOGY INR 1.17 0.85 - 1.17 06/13/2016 [facility] HEMATOLOGY PT 15.1 s 12.0 - 14.7 06/13/2016 [facility] PARATHYROID PROFILE Ca Norm WB 1.11 mMol/L 1.05 - 1.25 06/13/2016 [facility] PARATHYROID PROFILE Ca Ion WB 1.14 mMol/L 1.05 - 1.25 06/13/2016 [facility] Chest 1view DX Chest 1view DX EXAM: XR CHEST 1 VIEW DATE: 06/13/2016 9:40 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 TECHNIQUE: AP chest. FINDINGS: Postoperative TAVR changes are seen. The lung volumes are low which results in widening of the cardiomediastinal silhouette and bibasilar vascular congestion and platelike atelectasis. Within the limits of the semiupright positioning, no distinct pneumothorax is identified. Again seen, atherosclerosis of the aortic knob and descending thoracic aorta. IMPRESSION: 1. Postoperative TAVR changes. 2. Low lung volumes with bibasilar platelike atelectasis. This limits accurate evaluation of the lung parenchyma. 06/13/2016 - - This report was dictated by a [employer]ellow. I have personally reviewed the images as well as the Resident's interpretation and agree with the findings. Read by: Tuan Coombs MD Resident: Tuan Coombs MD Dictated Date/time: 06/13/16 15:21 Electronically Signed by: Stoney Green MD 06/13/16 21:42 FINAL REPORT [facility] BLOOD BANK RESULTS Antibody Scrn Negative (06/13/16 6:08 AM) 06/13/2016 [facility] BLOOD BANK RESULTS ABO/Rh A POS 06/13/2016 [facility] CHEM PANEL AST 55 unit/L 0 - 37 06/13/2016 [facility] CHEM PANEL Total Protein 7.8 g/dL 6.4 - 8.4 06/13/2016 [facility] CHEM PANEL Bili Total 0.7 mg/dL 0.2 - 1.3 06/13/2016 [facility] CHEM PANEL Alk Phos 91 unit/L 39 - 136 06/13/2016 [facility] CHEM PANEL Albumin Lvl 4.1 g/dL 3.5 - 5.0 06/13/2016 [facility] CHEM PANEL ALT 24 unit/L 0 - 65 06/13/2016 [facility] CHEM PANEL A/G Ratio 1.1 0.7 - 1.6 06/13/2016 [facility] CHEM PANEL Globulin 3.7 g/dL 2.7 - 4.2 06/13/2016 [facility] CHEM PANEL B/C Ratio 10 6 - 25 06/13/2016 [facility] HEMATOLOGY Eosinophils # 0.2 K/CMM 0.0 - 0.5 06/13/2016 [facility] HEMATOLOGY Basophils # 0.1 K/CMM 0.0 - 0.2 06/13/2016 [facility] HEMATOLOGY Macrocyte 1+ *ABN* (06/13/16 6:08 AM) None Seen 06/13/2016 [facility] BLOOD BANK RESULTS RBC product Product available (06/13/16 6:06 AM) 06/13/2016 [facility] BLOOD BANK RESULTS FFP product Product available (06/13/16 6:06 AM) 06/13/2016 [facility] Chest 1view DX Chest 1view DX EXAM: XR CHEST 1 VIEW DATE: 06/13/2016 6:06 AM STATION WORKER INDICATION: Heart failure COMPARISON: None available TECHNIQUE: AP chest FINDINGS: No pulmonary or pleural-based abnormality is identified. Pulmonary vascularity is normal. The heart size is normal for technique. Calcific atherosclerotic disease is noted in the aortic arch. The aorta is mildly tortuous. No acute bony abnormality is identified. IMPRESSION: 1. No acute cardiopulmonary abnormality. 2. Aortic arch calcific atherosclerotic disease. 3. Mild aortic tortuosity. 06/13/2016 - - This report was dictated by a [employer]. I have personally reviewed the images as well as the Resident's interpretation and agree with the findings. Read by: Waqar López MD Resident: Waqar López MD Dictated Date/time: 06/13/16 09:15 Electronically Signed by: Anil Strong MD 06/13/16 11:13 FINAL REPORT [facility] CHEM PANEL eGFR 70 mL/min/1.73m2 05/27/2016 Result Comment: The eGFR is calculated using the CKD-EPI formula. In most young, healthy individuals the eGFR will be >90 mL/min/1.73m2. The eGFR declines with age. An eGFR of 60-89 may be normal in some populations, particularly the elderly, for whom the CKD-EPI formula has not been extensively validated. Use of the eGFR is not recommended in the following populations: Individuals with unstable creatinine concentrations, including patients and those with serious co-morbid conditions. Patients with extremes in muscle mass or diet. The data above are obtained from the National Kidney Disease Education Program (NKDEP) which additionally recommends that when the eGFR is used in patients with extremes of body mass index for purposes of drug dosing, the eGFR should be multiplied by the estimated BMI. [facility] CHEM PANEL POC Creatinine 1.1 mg/dL 0.5 - 1.4 05/27/2016 [facility] Heart/coronary art TAVR CTA Heart/coronary art TAVR CTA EXAM: CARDIAC COMPUTED TOMOGRAPHY ANGIOGRAPHY DATE: 05/27/2016 INDICATION: Aortic stenosis. COMPARISON: None TECHNIQUE: Contrast imaging was performed on a [employer] [address] scanner utilizing a single breath hold. Retrospective ECG gating was performed. Images were reformatted at 0.5 mm intervals and sent to an independent workstation for interpretation. 90 ml of Visipaque 320 IV contrast was delivered via an 18 gauge IV catheter utilizing a power injector at 5 cc/sec and followed by 50 cc of normal saline bolus as a chaser. OVERALL STUDY QUALITY: Good FINDINGS: Aortic valve: Trileaflet, heavily and asymmetrically calcified with calcification involving primarily the noncoronary cusp. Coronary Arteries: This patient has a right dominant system with the origin of the coronary arteries being normal. Left main: Normal caliber vessel, with a calcified atheroma occupying the bifurcation into the left anterior descending and left circumflex arteries, not resulting into a flow-limiting stenosis. LAD: Normal caliber vessel, giving rise to one large diagonal branch. There is calcified atheroma primarily in the entire ostium of which there is overlapped a patent stent which extends just cranial to the takeoff of the 1st diagonal branch. Distal to the origin of the diagonal branch there is mixed, partially calcified atheroma, occupying the midsegment of the vessel, resulting in approximately 50% stenosis. The remaining of the vessel is free of significant atheroma. LCx: Normal caliber, nondominant vessel, with calcified atheroma extending from the ostium into the proximal segment of the vessel, resulting in approximately 50% stenosis the remaining of the vessel and its branches are free of significant atheroma. RCA: Normal caliber, dominant vessel, with calcified atheroma noted in the proximal segment. This atheroma results in less than 50% stenosis. The remaining of the vessel is too branches the posterior lateral and posterior descending artery are relatively well seen and is free of significant atheroma. Myocardium Appearance \\T\\ Function: Left ventricle normal in size and systolic function. Biventricular normal systolic function. Both atria are normal in size. Pulmonary veins with normal anatomy. Ejection Fraction: 68% ZYY=634 cc ESV=34 cc SV=72 cc Other: Severe posterior mitral annulus calcification is noted. There is also calcification of the sinuses of Valsalva extending towards the sinotubular junction. Lung zimmerman to the extent visualized in limited study: Please see radiologist interpretation for extracardiac findings. IMPRESSION: Aortic valve disease. Coronary artery disease status post PCI of the proximal left anterior descending with a patent stent. While this study is suggested that no flow-limiting stenosis, correlation with a invasive coronary angiography, if clinically indicated, is suggested. 05/27/2016 - - Read by: Tyrone Hammond MD Dictated Date/time: 05/27/16 15:37 Electronically Signed by: Tyrone Hammond MD 05/27/16 15:41 FINAL REPORT [facility] Chest/Abd/Pelvis TAVR CTA Chest/Abd/Pelvis TAVR CTA EXAM: CTA CHEST WITH AND WITHOUT CONTRAST EXAM: CTA ABDOMEN AND PELVIS WITH AND WITHOUT CONTRAST DATE: 05/27/2016 11:59 AM STATION WORKER INDICATION: Patient with aortic stenosis for PreTAVR evaluation ADDITIONAL INFORMATION: None. COMPARISON: None. TECHNIQUE: Volumetric CT acquisition of the chest, abdomen and pelvis during precontrast, arterial and venous phases. Axial, coronal and sagittal reconstructions. MIP reformats are created at the acquisition workstation. FINDINGS: Aorta and proximal branches: There is diffuse calcified atherosclerotic disease involving the aorta and the proximal branches but no evidence of intramural or periaortic hematoma. The innominate, proximal subclavian, and common carotid arteries demonstrate conventional branching pattern. There is atherosclerotic plaque at the origin of the left subclavian but no significant stenosis. In the right subclavian artery origin there is a large calcified atherosclerotic plaque with at least 50% stenosis. There is atherosclerotic plaque at the origins of celiac trunk, SMA, and RUDY. The celiac axis suggests about 30% stenosis. Calcified atherosclerotic plaque at the origins of both renal arteries which demonstrate at least 50% stenosis. Single renal arteries bilaterally. Tortuous iliac vessels and proximal femoral arteries with atherosclerotic changes. Measured appropriate vessel diameter measurements. measures: 3.4 cm at the ascending aorta at the level of the pulmonary artery, 2.7 cm at the mid arch, 2.6 cm at the descending aorta at the level of the main pulmonary artery, 2.7 cm at the level of the aortic hiatus, 2.3 cm at the level of the renal arteries 2.0 cm just proximal to the iliac bifurcation Right pelvis: 1.2 cm at the mid right common iliac 0.9 cm at the right external iliac artery 1.0 cm at the right common femoral artery at the level of the femoral head Left pelvis: 1.0 cm at the mid left common iliac 0.9 cm at the left external iliac artery 1.0 cm left femoral artery at the level of the femoral head CHEST: There is borderline cardiomegaly. The left ventricle is enlarged with associated myocardial up atrophy. Extensive aortic valve and mitral valve calcification noted. The coronary arteries are also calcified. Please see detailed evaluation from the CTA coronaries obtained on the same day. No significant mediastinal lymphadenopathy. Sliding hiatus hernia or Minimal bibasal fibrotic changes are noted but no focal intrapulmonary or obvious endobronchial lesions. The thyroid gland is unremarkable ABDOMEN/PELVIS: Normal appearances of the liver, pancreas, spleen, both adrenals and right kidney. There is a focal area of scarring in the left kidney upper pole posterior surface. The gallbladder fundus has ready to hypodensity which might reflect a phrygian cap with some calculus or cholesterolosis. No intrahepatic or extra hepatic biliary dilatation. No significant retroperitoneal lymphadenopathy. No free intraperitoneal fluid or air. The visualized large and small bowel are unremarkable. The bladder is distended and there are no obvious significant abnormalities identified. Incidental note of bilateral calcifications within the epididymis and both spermatic cords. BONES AND SOFT TISSUE: Grade 2 L2, and grade 1 T5 and T12 vertebral body wedge fractures. There is multilevel degenerative disc disease more marked at L5/L1. Bilateral pars defects at L5/S1 with no significant listhesis. IMPRESSION: CT chest abdomen and pelvis for for evaluation with the appropriate arterial diameters given above. 2. Diffuse atherosclerotic disease of the aorta and the profunda branches with significant stenosis in the right subclavian artery origin, both renal arteries origin. 3. Incidental note of multilevel vertebral body fractures, bilateral epididymis and spermatic cord calcifications and possible calculi in the gallbladder phrygian cap. 05/27/2016 - - Read by: John Christianson Dictated Date/time: 05/27/16 15:00 Electronically Signed by: John Christianson 05/27/16 18:19 FINAL REPORT [facility] Vital Signs Vital Sign Value Date Comments Source Respitory Rate 16 06/15/2016 [facility] Systolic (mm Hg) 104 06/15/2016 [facility] Diastolic (mm Hg) 64 06/15/2016 [facility] Respitory Rate 18 06/15/2016 [facility] Systolic (mm Hg) 105 06/15/2016 [facility] Diastolic (mm Hg) 61 06/15/2016 [facility] Respitory Rate 15 06/15/2016 [facility] Systolic (mm Hg) 107 06/15/2016 [facility] Diastolic (mm Hg) 61 06/15/2016 [facility] Temperature Oral (F) 97.9 F 06/15/2016 [facility] Temperature Oral (F) 97.8 F 06/15/2016 [facility] Temperature Oral (F) 97.7 F 06/15/2016 [facility] Weight 77.545 06/13/2016 [facility] BMI Calculated 24.53 06/13/2016 [facility] Height 177.8 cm 06/13/2016 [facility] Height 177.8 cm 05/27/2016 [facility] Weight 79.545 05/27/2016 [facility] BMI Calculated 25.16 05/27/2016 [facility] Encounters Location Location Details Encounter Type Encounter Number Reason For Visit Attending Provider ADM Date DC Date Status Source [facility] [id number] Derrick Ordonez 06/03/2014 06/04/2014 [facility] Outpatient [id number] Joshua Harrell 05/27/2016 05/28/2016 [facility] Inpatient [id number] Joshua Harrell 06/13/2016 06/15/2016 [facility] Procedures Procedure Code Date Perfomer Comments Source
[2018-03-04] MEDS ORDERED: ASPIRIN 81 MG CHEW TAB PO ONE (16:45)
[2018-03-04 16:46] LABS: BASOPHILS # (AUTO) 0.1 (0.0-0.1); BASOPHILS % 0.9 % (0.0-1.0); EOSINOPHILS # (AUTO) 0.6 (0.0-0.4); EOSINOPHILS % 4.9 % (0.0-6.0); HEMATOCRIT 31.9 % (38.2-49.6); HEMOGLOBIN 9.8 g/dL (14.0-18.0); LYMPHOCYTES # (AUTO) 2.8 (1.0-3.2); LYMPHOCYTES % 24.2 % (18.0-39.1); MEAN CORPUSCULAR HEMOGLOBIN 24.6 pg (28-32); MEAN CORPUSCULAR HGB CONC 30.7 g/dL (31-35); MEAN CORPUSCULAR VOLUME 79.9 fL (81-99); MONOCYTES # (AUTO) 1.4 (0.2-0.8); MONOCYTES % 11.7 % (4.4-11.3); NEUTROPHILS # (AUTO) 6.8 (2.1-6.9); NEUTROPHILS % 58.1 % (38.7-80.0); PLATELET COUNT 292 x10e3/uL (140-360); RED BLOOD COUNT 3.99 x10e6/uL (4.3-5.7); RED CELL DISTRIBUTION WIDTH 16.8 % (11.7-14.4)
[2018-03-04 17:15] LABS: ALBUMIN 3.6 g/dL (3.5-5.0); ALBUMIN/GLOBULIN RATIO 0.8 (0.8-2.0); ANION GAP 14.5 mmol/L (8-16); CALCIUM 10.2 mg/dL (8.4-10.2); CREATININE, SERUM 1.9 mg/dL (0.72-1.25); POTASSIUM 4.5 mmol/L (3.5-5.1)
--- NOTE | 2018-03-04 17:29 | Diagnostic Imaging Report ---
CT HEAD WITHOUT CONTRAST COMPARISON: Head CT 10/26/2014 INDICATION: Right facial droop, stroke Technique: Noncontrast axial scans were obtained from skull base to the vertex. Coronal and sagittal reconstructions obtained from the axial data. One or more of the following dose reduction techniques were used: Automated exposure control, adjustment of the mA and/or kV according to patient size, and/or utilization of iterative reconstruction technique. Beam hardening artifacts obscure some details. DISCUSSION: Scalp/Skull: Unremarkable. Brain sulci: Mildly prominent. Ventricles: Compensatory dilatation. Extra-axial spaces: No masses or fluid collections. Carotid siphon and vertebral artery calcifications are present. Parenchyma: Focal juxtacortical hypodensity in the right lateral cerebellum may be due to age indeterminate ischemia. Focal encephalomalacia in the left occipital pole is likely from remote infarct; there is evidence for local volume loss in this region. Subtle encephalomalacia along the right postcentral gyrus is also likely from remote infarct. Mild bilateral deep white matter hypodensity is likely chronic microvascular ischemic change. Otherwise, no masses, hemorrhage, or large vascular territory acute infarct. Dural sinuses: No abnormal densities. Sellar/Suprasellar region: Intact. Skull base: Intact. Incidental findings: There is mild mucosal thickening in the right ethmoid air cells. IMPRESSION: 1. Focal juxtacortical hypodensity in the right lateral cerebellum may be due to age indeterminate ischemia. 2. Otherwise, no acute intracranial abnormalities. 3. Old cortical infarcts in the left occipital pole and along the right postcentral gyrus. 4. Mild supratentorial chronic microvascular ischemic change. Mild generalized cerebral volume loss. Signed by: Dr. Miguel Vergara M.D. on 03/04/2018 5:26 PM
[2018-03-04 19:16] LABS: INR 2.11; PROTHROMBIN TIME 25.3 seconds (11.9-14.5)
[2018-03-04 20:04] LABS: CHOL/HDL RATIO 3.5 (3.9-4.7)
--- NOTE | 2018-03-04 20:15 | History and Physical ---
The patient comes in with right-sided facial droop and slurring of speech. HISTORY OF PRESENTING ILLNESS: Mr. Gene Mcgee has a history of hypertension, history of recent valve replacement, history of hyperlipidemia, history of depression and history of alcohol abuse in the past. He was in his usual state of health until the patient started having some slurred speech. About 2-3 days prior to admission, the patient notified the diagrammer and was seen by Dr. Ortiz today, and sent to the emergency room with a possible diagnosis of CVA and was admitted after CT scan findings showed CVA. PAST MEDICAL HISTORY: History of hyperlipidemia, history of hypertension, history of valve replacement, history of GI bleed, and also history of allergies and history of alcohol abuse in the past. The patient also has a history of pancreatitis. HOME MEDICATIONS: Amiodarone 200 mg daily, aspirin 81 mg daily, atorvastatin 20 mg daily, Pepcid 20 mg daily, hydrocodone one tablet p.o. q.6 h. as needed, metoprolol XL 50 mg daily, mirtazapine 50 mg daily, pantoprazole 40 mg and warfarin 1 mg, 2 tablets every day. PAST SURGICAL HISTORY: History of coronary artery bypass and stent surgery and history of valve replacement also. SOCIAL HISTORY: No ETOH now, currently nondrinker. History of smoking in the past. No drug abuse in the past. REVIEW OF SYSTEMS: Negative for chest pain, no shortness of breath, no nausea, vomiting, diarrhea, no constipation, no rectal bleeding, no hematochezia. Positive for some abdominal pain, epigastrium. Otherwise normal. PHYSICAL EXAMINATION GENERAL: The patient is alert and oriented with right-sided facial droop. HEENT: Normocephalic, atraumatic, otherwise. CVS: S1 and S2. Regular rate and rhythm. ABDOMEN: Nontender, nondistended. EXTREMITIES: No cyanosis, clubbing or edema. The patient's EKG shows normal sinus rhythm. Normal axis and normal QRS complexes and no ischemia present. LABORATORY DATA: White count of 7.4, hemoglobin 9.8, hematocrit 31.9. Chemistry showed sodium 135, BUN 29, creatinine 1.9. Troponin has been negative. Calcium normal. Glucose is normal too. Coags are pending at this time. CT of the brain shows focal cortical hyperdensity in the right lateral cerebellum, may be due to age-indeterminate ischemia, old cortical infarcts in the left occipital pole, mild supratentorial microvascular ischemic changes also present. ASSESSMENT: Cerebrovascular accident. RECOMMENDATIONS: Will restart his warfarin levels. The patient will be on Enoxaparin at this point in time. Consult with Dr. Iniguez will be done and also consult with Dr. Ortiz will be done. Will continue monitoring the patient. Restart his warfarin. Check his lipid status, and also do an echocardiogram. Further recommendations depending on clinical course. Will admit the patient and also do neuro checks every 4 hours. Job#: [id number]
[2018-03-04 21:00] VITALS: BP 114/59
[2018-03-04] MEDS ORDERED: ATORVASTATIN 20 MG TAB PO SCH (21:00)
[2018-03-04 21:30] VITALS: BP 114/59
[2018-03-04] MEDS: MIRTAZAPINE 15 MG TAB PO SCH (22:22)
[2018-03-04] MEDS: FAMOTIDINE 20 MG TAB PO SCH (22:23)
[2018-03-04] MEDS: WARFARIN SOD 1 MG TAB PO SCH (22:23)
[2018-03-05] VITALS (7 sets, daily range): BP systolic 96–138; BP diastolic 51–70
[2018-03-05 05:18] LABS: BASOPHILS # (AUTO) 0.1 (0.0-0.1); BASOPHILS % 1.3 % (0.0-1.0); EOSINOPHILS # (AUTO) 0.6 (0.0-0.4); EOSINOPHILS % 6.1 % (0.0-6.0); HEMATOCRIT 29.6 % (38.2-49.6); HEMOGLOBIN 9.3 g/dL (14.0-18.0); LYMPHOCYTES # (AUTO) 2.2 (1.0-3.2); LYMPHOCYTES % 22.9 % (18.0-39.1); MEAN CORPUSCULAR HEMOGLOBIN 24.7 pg (28-32); MEAN CORPUSCULAR HGB CONC 31.4 g/dL (31-35); MEAN CORPUSCULAR VOLUME 78.7 fL (81-99); MONOCYTES # (AUTO) 1.5 (0.2-0.8); MONOCYTES % 15.2 % (4.4-11.3); NEUTROPHILS # (AUTO) 5.2 (2.1-6.9); NEUTROPHILS % 54.2 % (38.7-80.0); PLATELET COUNT 264 x10e3/uL (140-360); RED BLOOD COUNT 3.76 x10e6/uL (4.3-5.7); RED CELL DISTRIBUTION WIDTH 16.8 % (11.7-14.4)
[2018-03-05 05:37] LABS: ANION GAP 12.1 mmol/L (8-16); CALCIUM 9.6 mg/dL (8.4-10.2); CREATININE, SERUM 1.82 mg/dL (0.72-1.25); MAGNESIUM 2.1 MG/DL (1.3-2.1); POTASSIUM 4.1 mmol/L (3.5-5.1)
[2018-03-05 06:07] LABS: FREE THYROXINE INDEX 3.2843 (1.4-3.8); THYROID STIMULATING HORMONE 0.612 uIU/mL (0.350-4.940)
--- NOTE | 2018-03-05 07:08 | Progress Note ---
DATE: March 05, 2018 Patient is currently doing well. No complaints. Has some slurred speech and facial droopiness, but no other focal deficits noted. The patient is alert and oriented times 3 and in good spirits. No complaints at this time. OBJECTIVE VITALS: Temperature is 96.1, pulse 89, blood pressure is 138/70, respirations 20, SpO2 of 99%. GENERAL: The patient is alert and oriented times 3. HEENT: Normocephalic and atraumatic. The patient has facial droop and slightly blurry vision. CV: S1 and S2 normal. Regular rate and rhythm. Ejection systolic murmur. ABDOMEN: Nontender and nondistended. EXTREMITIES: No clubbing. No cyanosis. No edema. NEUROLOGIC: Alert and oriented times 3. The patient's pupils reactive to light and accommodation. Motor function is normal. Sensory function normal. His reflexes are equal on both sides. LABORATORY VALUES: White count has come down from 11 to 9.5, hemoglobin is 9.3, hematocrit of 29.6. The patient's chemistry shows sodium of 139, potassium of 4.1, BUN was 27, creatinine of 1.82. TSH was 0.612. T4 of 8.6. LDL was 97, HDL 47, total cholesterol of 163, and triglycerides of 96. Coags: INR was 2.11. CT scan findings as mentioned shows a cerebellar hypodensity indicative of CVA. The patient does have a wide-based gait. ASSESSMENT 1. Cerebrovascular accident with a history of recent replacement: Will continue on the warfarin. He is adequately anticoagulated at 2.1, INR. 2. Hyperlipidemia: The patient is currently on atorvastatin, which will continue with that at 40 mg daily. The patient is on metoprolol for hypertension. He is also on 81 mg of aspirin and 20 mg of amiodarone. Will continue monitoring the patient. Neurology consult is pending. The patient according to him cannot have an MRI secondary to his valve replacement, which we will look in to. We will do a carotid Doppler. An echo is done that shows an EF of 50% to 55%. No valvular abnormalities noted. For further information, look in the chart. The patient can start with physical therapy and occupational therapy pending neurological evaluation. Will also get carotid Doppler and wait for the results of that. For further information, look in the chart. For medicines, look into the medical reconciliation sheet. Job#: [id number] [place]
[2018-03-05] MEDS ORDERED: PANTOPRAZOLE SOD 40 MG TABEC PO SCH (09:00)
[2018-03-05] MEDS: METOPROLOL SUCCINATE 50 MG TAB XL PO SCH (09:45)
[2018-03-05] MEDS: PANTOPRAZOLE SOD 40 MG TABEC PO SCH (09:45)
[2018-03-05] MEDS: ASPIRIN 81 MG CHEW TAB PO SCH (09:45)
[2018-03-05] MEDS: FAMOTIDINE 20 MG TAB PO SCH ×2 (09:45→17:51)
[2018-03-05] MEDS: AMIODARONE HCL 200 MG TAB PO SCH (09:45)
[2018-03-05] MEDS: WARFARIN SOD 1 MG TAB PO SCH (17:51)
[2018-03-05] MEDS: ATORVASTATIN 40 MG TAB PO SCH (20:12)
[2018-03-05] MEDS: MIRTAZAPINE 15 MG TAB PO SCH (20:12)
[2018-03-05] MEDS ORDERED: ATORVASTATIN 40 MG TAB PO SCH (21:00)
[2018-03-06] VITALS (8 sets, daily range): BP systolic 97–136; BP diastolic 51–65
--- NOTE | 2018-03-06 00:38 | Consultation ---
DATE OF CONSULTATION: March 05, 2018 NEUROLOGY CONSULT NOTE HISTORY OF PRESENT ILLNESS: Mr. Mcgee is a 67-year-old throd-mepl-ngdjfbti man with past medical history significant for hypertension, hyperlipidemia, coronary artery disease, atrial flutter status post ablation, and lower extremity deep vein thrombosis, admitted to [facility] on March 04, 2018 with symptoms suspicious for a stroke. At approximately 0500 on March 03, 2018, the patient experienced the abrupt onset of dysarthria with a right facial droop. Mr. Mcgee does not report a visual field cut or other disturbance, aphasia, hemiparesis, hemihypesthesia, poor balance, gait impairment, dizziness, or confusion. According to the patient and his , the dysarthria and right facial droop resolved within 5 minutes. However, at 1430 on the same day, the same symptoms recurred and persisted. On March 04, 2018, the patient saw his automotive salesperson, Dr. Ortiz, who recommended the patient proceed to the emergency center at [facility] for evaluation for a stroke. Upon arrival in the emergency center, the patient was afebrile with a blood pressure of 121/70 mmHg and a pulse of 69 beats per minute. His neurological examination was significant for expressive aphasia and a "right-sided droop." A CT of the brain without contrast was performed while the patient was in the emergency center. This study revealed age indeterminate ischemia in the right lateral cerebellum. Prior infarcts were seen in the left occipital pole as well as the right postcentral gyrus. Mr. Mcgee was admitted to [facility] under observation status for further evaluation and treatment of his symptoms. Mr. Mcgee does not report experiencing similar symptoms previously. The patient does take Coumadin due to his prior history of lower extremity deep venous thrombosis. The patient endorses compliance with this medication as prescribed. REVIEW OF SYSTEMS: Joint pain, dysarthria, right facial weakness, and low back pain. Otherwise, the 12-point review of systems is negative. PAST MEDICAL HISTORY: Hypertension, hyperlipidemia, coronary artery disease, atrial flutter, possible COPD, osteoarthritis, peptic ulcer disease, orthostatic hypotension, alcohol-induced pancreatitis, and lower extremity deep venous thrombosis. PAST SURGICAL HISTORY: Ablation for atrial flutter, bilateral cataract removal, lumbar spine surgeries (diskectomy, laminectomy), stents placed and subsequently removed in the biliary system, aortic valve replacement, resection of skin cancers, resection of a polyp during colonoscopy. PAST HOSPITALIZATIONS: Surgeries/procedures as listed, peptic ulcer disease in 2012, pancreatitis and delirium tremens in May 2017. FAMILY MEDICAL HISTORY: The patient's paternal and maternal grandparents are . Their medical histories are unknown. The patient's father is from congestive heart failure. Mr. Mcgee's mother is . Her cause of is unknown. She did have a history of rheumatoid arthritis. Mr. Mcgee had 5 siblings, 4 sisters and 1 brother. One sister is from alcoholic cirrhosis. The remaining 3 sisters are alive. Two sisters have had breast cancer. The third sister is reportedly healthy. The patient's one brother is alive and healthy. Mr. Mcgee had 3 children, all sons. The eldest son is from brain cancer. The younger 2 sons are alive and healthy. SOCIAL HISTORY: Mr. Mcgee is . He is retired. He does report a prior history of tobacco use, but quit smoking cigarettes in 2004. The patient does have a history of heavy alcohol use. His last alcoholic beverage was consumed in May of 2017. The patient does not report current or prior recreational drug use. HOME MEDICATIONS: Aspirin 81 mg by mouth daily, Coumadin 1 mg by mouth daily, amiodarone 200 mg by mouth daily, atorvastatin 40 mg by mouth at bedtime daily, Zyrtec-D 1 tablet by mouth daily, Pepcid 20 mg by mouth twice daily, hydrocodone-acetaminophen 1 tablet by mouth every 6 hours as needed for pain, metoprolol 50 mg by mouth daily, Remeron 15 mg by mouth at bedtime daily, Protonix 20 mg by mouth daily. ALLERGIES: THE PATIENT REPORTS AN ALLERGY TO MOBIC, WHICH CAUSES A RASH. NO KNOWN FOOD ALLERGIES. NO KNOWN ALLERGIES TO LATEX. NO KNOWN ALLERGIES TO IODINE OR OTHER CONTRAST MATERIALS. PHYSICAL EXAMINATION: VITAL SIGNS: Height 70 inches, weight 147 pounds, BMI 21.1 kg/sq m. Blood pressure 101/59 mmHg, pulse 80 beats per minute, respiratory rate 19 breaths per minute, oxygen saturation 98% on room air. GENERAL: The patient is awake and alert. Does not appear distressed. HEENT: Normocephalic, atraumatic. Pupils are equal, round, and reactive to light. Moist mucous membranes. NECK: Supple. No appreciable thyromegaly. Positive right carotid bruit. CARDIOVASCULAR: S1, S2, regular rate and rhythm. No murmurs, rubs, or gallops. RESPIRATORY: Clear to auscultation bilaterally. No wheezes, rhonchi, or rales. EXTREMITIES: The skin is warm and dry. No clubbing, cyanosis, or edema. The posterior tibial and dorsalis pedis pulses are 1+ and symmetric. SKIN: No rashes or lesions. NEUROLOGIC EXAMINATION: MEMORY/ATTENTION: The patient is awake and alert, oriented to person, place, time, and situation. CRANIAL NERVES: Cranial nerve I - not tested. Cranial nerves II, III, IV, and - Pupils are equal and round, reacts briskly to light (from 4 mm to 2 mm). Extraocular movements intact. No nystagmus. Cranial nerve V - Sensation to light touch and pinprick is intact in the bilateral V1 through V3 distributions. Strength of the temporalis and masseter muscles is within normal limits. Cranial nerve VII - The face is asymmetric on the right. All facial movements are symmetric. Strength is within normal limits. Cranial nerve VIII - Hearing is diminished to finger rub on the left, intact on the right. Cranial nerve IX, X - The soft palate elevates equally and symmetrically. Cranial nerve XI - Normal strength of the bilateral sternocleidomastoid and trapezius muscles. Cranial nerve XII - The tongue protrudes midline and moves symmetrically from side to side. STRENGTH: Bulk is diminished throughout. Strength is 5/5 in the bilateral deltoids, biceps, triceps, wrist flexors and extensors, finger flexors and extensors, intrinsic hand muscles, hip flexors, knee flexors and extensors, ankle dorsiflexion and plantarflexion, and intrinsic foot muscles. Tone is normal. DTRs: Deep tendon reflexes are 1+ and symmetric at the triceps, biceps, brachioradialis, and patellas. Deep tendon reflexes are absent and symmetric at the Achilles. Plantar responses are flexor bilaterally. SENSATION: Sensation is intact to light touch and pinprick in both arms and both legs. CEREBELLAR: Dkjryc-opne-oicekb and heel-hernandez movements are intact without dysmetria or other impairment except as follows: Dysmetria with heel-hernandez movements on the right. GAIT: Deferred. SPEECH: Spontaneous speech is normal without appreciable dysarthria or aphasia. Repetition is intact. INVOLUNTARY MOVEMENTS: None. PRONATOR DRIFT: None. LABORATORY DATA: The most recent basic metabolic panel is significant for an elevated BUN of 27, an elevated creatinine of 1.82, and a decreased GFR of 37. A liver function panel collected on March 04, 2018 is unremarkable. Total cholesterol 163, triglycerides 96, LDL cholesterol 97, HDL cholesterol 47. Vitamin B12 456. TSH 0.612, free T4 index 3.2843, thyroxine (T4) 8.60, T3 uptake 38.19. The CBC with differential and platelets reveals a white blood cell count of 9.54 with 54.2% neutrophils, 22.9% lymphocytes, 15.2% monocytes, 6.1% eosinophils, and 1.3% basophils. The hemoglobin and hematocrit are 9.3 and 29.6, respectively. The platelet count is 264,000. PT 25.3. INR 2.11. DIAGNOSTIC STUDIES: 1. Electrocardiogram, normal sinus rhythm. 2. CT of the brain without contrast, March 04, 2018: On my review, there is age indeterminate ischemia in the right lateral cerebellum. There are prior ischemic infarcts in the left occipital pole and along the right postcentral gyrus. There is diffuse cerebral atrophy with compensatory dilatation of the ventricles, more than expected for age. There are findings compatible with zriu-la-swiemcfp chronic small-vessel ischemic disease. 3. Echocardiogram, March 05, 2018: Ejection fraction 55%. The aortic valve has been replaced. 4. Bilateral carotid artery ultrasound with Doppler, March 05, 2018: There is atherosclerosis without hemodynamically significant stenosis at the right common carotid artery, right carotid bulb, right carotid bifurcation, right internal carotid artery, and right external carotid artery. There is atherosclerosis without hemodynamically significant stenosis at the left common carotid artery and left external carotid artery. There is atherosclerosis with possible hemodynamically significant stenosis at the left carotid bulb and left internal carotid artery. ASSESSMENT AND PLAN: Mr. Mcgee is a 67-year-old meyxe-twxm-blgwqtdu man with multiple vascular risk factors, admitted to [facility] with dysarthria and right facial weakness/asymmetry, probably representing a lacunar infarct in the left subcortical middle cerebral artery distribution. The patient has undergone a thorough neurological examination with findings detailed above. Mr. Mcgee's laboratory data and other diagnostic studies have been reviewed and are documented above. RECOMMENDATIONS: As follows: 1. A hemoglobin A1c will be ordered to complete the stroke evaluation. 2. Ideally, further imaging of the patient's extracranial vasculature would be obtained. However, the patient's poor kidney function excludes a CTA of the neck. Due to his prosthetic aortic valve, the patient is unable to undergo an MRA of the neck. 3. Speech and physical therapy consultations will be ordered. 4. Continue anticoagulation with Coumadin 1 mg by mouth daily. 5. The patient's blood pressures are currently at goal. Continue his current antihypertensive medications. Monitor vital signs per unit protocol. 6. The patient's total cholesterol is at goal of less than 200. The patient's LDL is not at goal of less than 70. Mr. Mcgee's home medication of atorvastatin will be increased to 80 mg by mouth at bedtime daily. 7. Follow up the results of the hemoglobin A1c. Tight glycemic control is recommended while the patient is in the hospital. 8. GI prophylaxis with Pepcid 20 mg by mouth twice daily with meals. DVT prophylaxis with Coumadin as detailed above. It is possible a consult with Dr. Casey (vascular surgery) will be ordered due to the patient's reported hemodynamically significant stenosis in the left carotid artery system. 9. Defer treatment of the remaining medical comorbidities to the primary and other services following the patient. Thank you for this consultation. I will continue to follow the patient while he remains in the hospital. TIME SPENT: 70 minutes. Job#: [id number] DR MARTINEZ
--- NOTE | 2018-03-06 07:06 | Progress Note ---
DATE: March 06, 2018 Patient comes in for a CVA. Currently stable. No complaints. No chest pain or shortness of breath. No nausea or vomiting. No neurological symptoms at this time. OBJECTIVE VITALS: Temperature is 96.1, pulse of 73, blood pressure is 121/61, SpO2 of 94, respirations of 18. GENERAL: Alert and oriented times 3. HEENT: Normocephalic and atraumatic. Pupils are reactive to light and accommodation. CV: S1 and S2 normal. Ejection systolic murmur present. ABDOMEN: Nontender and nondistended. EXTREMITIES: No clubbing. No cyanosis. No edema. The patient is on amiodarone and aspirin, metoprolol, mirtazapine, pantoprazole, and warfarin at 1 mg. The patient's atorvastatin has been increased to 80 mg. LABORATORY VALUES: Yesterday, his white count was 9.54, hemoglobin of 9.3, hematocrit of 29.6. Chemistry: Sodium of 139, BUN of 27, creatinine of 1.82. Thyroid panel is normal. LDL of 97. Atorvastatin has been increased to 80 mg. ASSESSMENT 1. Cerebrovascular accident: Physical therapy and occupational therapy has been ordered. Consultation with Dr. Iniguez has been reviewed. 2. Hemoglobin A1c is pending. 3. Speech therapy has been added. 4. For his chronic kidney disease, will continue monitoring his creatinine. 5. Gastrointestinal prophylaxis with Pepcid has been done. 6. There is significant left carotid artery stenosis: Consult Dr. Casey. Continue with his antidepressants. Dr. Ortiz is also on the case. Will continue to monitor the patient. The patient's anemia will also be monitored. Job#: [id number] MS
[2018-03-06] MEDS: PANTOPRAZOLE SOD 40 MG TABEC PO SCH (08:40)
[2018-03-06] MEDS: ASPIRIN 81 MG CHEW TAB PO SCH (08:40)
[2018-03-06] MEDS: FAMOTIDINE 20 MG TAB PO SCH ×2 (08:40→18:08)
[2018-03-06] MEDS: AMIODARONE HCL 200 MG TAB PO SCH (08:40)
[2018-03-06] MEDS: METOPROLOL SUCCINATE 50 MG TAB XL PO SCH (09:00)
[2018-03-06 09:45] LABS: BASOPHILS # (AUTO) 0.1 (0.0-0.1); BASOPHILS % 0.9 % (0.0-1.0); EOSINOPHILS # (AUTO) 0.6 (0.0-0.4); EOSINOPHILS % 6.4 % (0.0-6.0); HEMATOCRIT 29.9 % (38.2-49.6); LYMPHOCYTES % 20.9 % (18.0-39.1); MEAN CORPUSCULAR HGB CONC 30.1 g/dL (31-35); MEAN CORPUSCULAR VOLUME 79.7 fL (81-99); MONOCYTES # (AUTO) 1.3 (0.2-0.8); MONOCYTES % 13.3 % (4.4-11.3); NEUTROPHILS # (AUTO) 5.6 (2.1-6.9); NEUTROPHILS % 58.2 % (38.7-80.0); PLATELET COUNT 271 x10e3/uL (140-360); RED BLOOD COUNT 3.75 x10e6/uL (4.3-5.7); RED CELL DISTRIBUTION WIDTH 16.9 % (11.7-14.4)
[2018-03-06 10:02] LABS: ANION GAP 14.1 mmol/L (8-16); CALCIUM 9.5 mg/dL (8.4-10.2); CREATININE, SERUM 1.96 mg/dL (0.72-1.25); POTASSIUM 4.1 mmol/L (3.5-5.1)
[2018-03-06 16:48] LABS: INR 2.33; PROTHROMBIN TIME 27.3 seconds (11.9-14.5)
[2018-03-06] MEDS: WARFARIN SOD 1 MG TAB PO SCH (18:31)
[2018-03-06] MEDS ORDERED: CITRATE OF MAGNESIA 300ML BOTTLE PO ONE (19:15)
[2018-03-06] MEDS: SODIUM CHLORIDE 0.9% 1000ML 1,000 ML IV SCH (19:49)
[2018-03-06] MEDS: ATORVASTATIN 40 MG TAB PO SCH (20:13)
[2018-03-06] MEDS: MIRTAZAPINE 15 MG TAB PO SCH (20:13)
[2018-03-07] VITALS (7 sets, daily range): BP systolic 102–154; BP diastolic 58–68
[2018-03-07 04:57] LABS: BASOPHILS # (AUTO) 0.1 (0.0-0.1); BASOPHILS % 0.8 % (0.0-1.0); EOSINOPHILS # (AUTO) 0.4 (0.0-0.4); EOSINOPHILS % 3.9 % (0.0-6.0); HEMATOCRIT 29.5 % (38.2-49.6); HEMOGLOBIN 9.1 g/dL (14.0-18.0); LYMPHOCYTES # (AUTO) 2.1 (1.0-3.2); LYMPHOCYTES % 19.7 % (18.0-39.1); MEAN CORPUSCULAR HEMOGLOBIN 24.2 pg (28-32); MEAN CORPUSCULAR HGB CONC 30.8 g/dL (31-35); MEAN CORPUSCULAR VOLUME 78.5 fL (81-99); MONOCYTES # (AUTO) 1.4 (0.2-0.8); MONOCYTES % 12.7 % (4.4-11.3); NEUTROPHILS # (AUTO) 6.8 (2.1-6.9); NEUTROPHILS % 62.5 % (38.7-80.0); PLATELET COUNT 254 x10e3/uL (140-360); RED BLOOD COUNT 3.76 x10e6/uL (4.3-5.7); RED CELL DISTRIBUTION WIDTH 16.8 % (11.7-14.4)
[2018-03-07 05:32] LABS: ANION GAP 12.8 mmol/L (8-16); CALCIUM 9.2 mg/dL (8.4-10.2); CREATININE, SERUM 1.76 mg/dL (0.72-1.25); POTASSIUM 3.8 mmol/L (3.5-5.1)
--- NOTE | 2018-03-07 07:55 | Progress Note ---
DATE: March 07, 2018 SUBJECTIVE: This patient comes in here for a CVA. Patient is currently asymptomatic, although carotid artery Doppler showed occlusion. OBJECTIVE VITALS: Patient's blood pressure is 154/66, temperature 97.2, pulse of 97, and SpO2 of 96%. HEENT: Normocephalic and atraumatic. Pupils are reactive to light and accommodation. CV: S1 and S2 normal. Regular rhythm. ABDOMEN: Nontender and nondistended. EXTREMITIES: No clubbing. No cyanosis. No edema. LABORATORY DATA: BUN is 26 and creatinine 1.76. Hemoglobin of 9.1 and hematocrit of 29.5. Patient's chemistry, creatinine has been running about 1.76 to 1.82. ASSESSMENT 1. Cerebrovascular accident. 2. Carotid artery occlusion. PLAN: Dr. Casey has seen him. Patient needs a carotid endarterectomy in about 4-[address] angiogram is recommended, but with the patient's valvular status and also with his renal status, that cannot be done. Plan today would be to consult renal. Start the patient on some fluids, slow hydration and possible angiogram by Dr. Ortiz on Friday. Patient needs CEA in 4-6 weeks. We discussed this with the patient and patient is agreeable to the plan. Patient will continue with GI prophylaxis, and also we will continue monitoring his warfarin levels on a daily basis. Further information after renal has seen the patient and possible after Dr. Ortiz' does his angiogram. FINAL DIAGNOSES 1. Cerebrovascular accident. 2. Hypertension. 3. History of valve replacement. 4. History of anticoagulation. Job#: [id number] ASHLEY
[2018-03-07] MEDS: ASPIRIN 81 MG CHEW TAB PO SCH (08:43)
[2018-03-07] MEDS: AMIODARONE HCL 200 MG TAB PO SCH (08:43)
[2018-03-07] MEDS: PANTOPRAZOLE SOD 40 MG TABEC PO SCH (08:43)
[2018-03-07] MEDS: FAMOTIDINE 20 MG TAB PO SCH ×2 (08:43→17:15)
[2018-03-07] MEDS: METOPROLOL SUCCINATE 50 MG TAB XL PO SCH (08:44)
[2018-03-07] MEDS: SODIUM CHLORIDE 0.9% 1000ML 1,000 ML IV SCH ×2 (08:48→21:25)
--- NOTE | 2018-03-07 16:36 | Consultation ---
DATE OF CONSULTATION: March 07, 2018 ATTENDING PHYSICIAN: Dr. Kamar Norris Thank you so much for asking me to see Mr. Mcgee in consultation. REASON FOR CONSULTATION: He is a very complex 67-year-old man who I directed from my office on the afternoon of the with the complaint of speech and facial asymmetry. HISTORY OF PRESENT ILLNESS: The patient had notified my office on the afternoon of the that he had had some speech difficulties in the morning, but they have resolved and he decided to see me in the office on the when he had drooping of the right face and some speech slurring and was directed to the emergency room for cerebrovascular accident. PAST MEDICAL HISTORY: Long and complex with longstanding hypertension and hyperlipidemia. He had syncopal episodes far back in 2007. He had a transaortic valve replacement in June of 2016 and was hospitalized for pancreatitis and delirium treatments in June of 2017 with a lengthy recovery. 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 Patient developed deep venous thrombosis during his lengthy hospitalizations after his pancreatitis and DTs. MEDICATIONS: Took warfarin for only 3 weeks and now has resumed medication. His recent mediations at home have been Coumadin 2 mg alternating with 2.5 mg, aspirin 81 mg daily this week, hydrocodone, metoprolol tartrate 50 mg daily, atorvastatin 50 mg daily, Pepcid 20 mg at bedtime, Protonix, amiodarone 200 mg daily, perindopril 4 mg daily, and Advair inhaler. SURGICAL HISTORY: Patient had L4-5 laminectomy and diskectomy in 2012, cataract in 2013, benign colon polypectomies in 2012, 2013, 2014, had ablation of atrial flutter in 2016 and had gastrointestinal bleeding, basal esophageal and duodenal ulcers, and using Aleve in 2012 while he was in [facility]. PHYSICAL EXAMINATION GENERAL: At this time shows, alert white man who looks much older than stated age. HEENT: Shows a right facial droop. NECK: No jugular venous distention or bruits. THORAX: Heart sounds S1, S2 are equal without murmur. LUNGS: Clear. ABDOMEN: Protuberant. Normal bowel sounds. EXTREMITIES: No cyanosis, clubbing, or edema. NEUROLOGIC: Shows slight dysarthria. ASSESSMENT 1. Cerebrovascular accident or transient ischemic attack. 2. History of hypertension. 3. History of hyperlipidemia. 4. History of atrial flutter ablated. 5. Status post transaortic valve replacement of tissue valve. 6. History of pancreatitis and delirium tremens in June of 2017. 7. Mild renal insufficiency. PLAN: I have instructed him to begin aspirin today and will await other noninvasive studies and neurological evaluation. He is being admitted to Dr. Kamar Norris. We will follow him closely with you. Thank you for asking me to see him in consultation. Job#: [id number] KEVEN
[2018-03-07] MEDS: WARFARIN SOD 1 MG TAB PO SCH (17:15)
--- NOTE | 2018-03-07 18:32 | Consultation ---
DATE OF CONSULTATION: March 07, 2018 NEPHROLOGY CONSULTATION REASON FOR CONSULT: Acute kidney injury on chronic kidney disease. HISTORY OF PRESENT ILLNESS: Mr. Lee is a 67-year-old male with the following problem list: 1. History of recent valve replacement. 2. Dyslipidemia. 3. History of depression. 4. History of remote alcohol abuse. 5. Chronic kidney disease, stage 2 to stage 3. 6. History of hypertension. 7. History of GI bleed. 8. History of pancreatitis. 9. History of cardiac arrhythmia. The patient was evaluated by Dr. Ortiz as an outpatient 2 to 3 days prior to admission. The patient was sent to the emergency room with a suspected diagnosis of cerebrovascular accident based on a CAT scan finding. The patient has completely recovered neurologically. He has no difficulty swallowing or with speech. He denied any shortness of breath, fever, chills, masses, rashes, abdominal pain, nausea, vomiting, vision or hearing changes. He maintains a good appetite. He denied any dysuria, hematuria, pain, or burning on micturition. He denied any change in his urine output. PAST MEDICAL HISTORY: As above in addition to atherosclerotic cardiovascular disease and coronary artery disease, status post PCI and stent placement. SOCIAL HISTORY: Lives with , who is a retired nurse. She is fit and healthy. The patient denied any current alcohol, tobacco, or illicit or recreational drug use. REVIEW OF SYSTEMS: As above, otherwise all points negative. FAMILY HISTORY: Noncontributory. PHYSICAL EXAMINATION GENERAL: Alert, elderly male who is approximately his stated age, in no acute distress. VITAL SIGNS: Blood pressure 154/66, heart rate 97 per minute. SHEENT: Fundi not visualized. Conjunctivae anicteric. Head, normocephalic and atraumatic. Extraocular movements full. NECK: Supple. No JVD. No lymphadenopathy. LUNGS: Bilaterally clear to auscultation. HEART: Normal heart sounds. No additional sounds. ABDOMEN: Soft, nontender. No organomegaly. EXTREMITIES: No cyanosis, clubbing, or edema. LABORATORY FINDINGS: Noted and reviewed. ASSESSMENT AND PLAN 1. Acute kidney injury on chronic kidney disease due to neurologic event and possible mild volume depletion. The patient's BUN and creatinine have gradually improved with IV hydration. 2. Hypertension. Blood pressure is fairly well controlled, slightly labile. 3. Anemia of chronic disease. Hematocrit and hemoglobin are stable with a slight decrease with hydration further supporting the impression of mild volume depletion. 4. Atherosclerotic cardiovascular disease, for evaluation of carotid stenosis. The patient reports that Dr. Ortiz is planning minimal contrast aortic arch angiogram. The patient's risk of contrast-induced nephropathy is low especially with minimal exposure to contrast volume. His risk of contrast-induced nephropathy is 14%, risk of need for dialysis is 0.12%, and a 1-year mortality risk is 6%. I have discussed this with the patient in great detail. All his questions were answered to his satisfaction until he had none. We will follow this patient with you. Job#: [id number] LPA
[2018-03-07] MEDS: MIRTAZAPINE 15 MG TAB PO SCH (21:55)
[2018-03-07] MEDS: ATORVASTATIN 40 MG TAB PO SCH (21:55)
[2018-03-08] VITALS (7 sets, daily range): BP systolic 113–137; BP diastolic 56–70
[2018-03-08] MEDS: SODIUM CHLORIDE 0.9% 1000ML 1,000 ML IV SCH ×2 (04:41→10:03)
--- NOTE | 2018-03-08 07:04 | Progress Note ---
DATE: March 08, 2018 SUBJECTIVE: This patient comes in with CVA. Patient is awaiting an angiogram on Friday. Currently asymptomatic. No focal deficits or increased deficits noted. Patient is on warfarin with INR 2.3. Patient is also on metoprolol and mirtazapine at night time. OBJECTIVE VITAL SIGNS: Temperature is 97.8, pulse of 71, blood pressure is 132/65, and SpO2 of 98%. GENERAL: Alert and oriented x3. HEENT: Normocephalic, atraumatic. Pupils were reactive to light and accommodation. LUNGS: Clear to auscultation bilaterally. CARDIOVASCULAR: S1 and S2 normal. Regular rhythm. EXTREMITIES: No clubbing, no cyanosis, and no edema. NEUROLOGICAL: Speech is normal. No focal deficit. Cranial nerves normal. LABORATORY DATA: Yesterday, BUN was 26, creatinine of 1.76, hemoglobin 9.1, and hematocrit of 29.5. ASSESSMENT AND PLAN 1. Cerebrovascular accident middle cerebral artery territory. Plan is to continue on physical therapy and occupational therapy. Patient is to proceed for an angiogram tomorrow. 2. Chronic kidney disease: Patient has renal coverage. We will still proceed with angiogram tomorrow. 3. Hyperlipidemia: Continue on high-dose statin. 4. Gastrointestinal prophylaxis and patient has a history of pancreatitis. 5. Hypertension, which we will continue with the medications. Further recommendations as per the clinical course. We will continue watching the patient along with the cardiology who is going to do the angiogram tomorrow. Job#: [id number] ASHLEY
[2018-03-08] MEDS: AMIODARONE HCL 200 MG TAB PO SCH (08:39)
[2018-03-08] MEDS: METOPROLOL SUCCINATE 50 MG TAB XL PO SCH (08:39)
[2018-03-08] MEDS: PANTOPRAZOLE SOD 40 MG TABEC PO SCH (08:39)
[2018-03-08] MEDS: ASPIRIN 81 MG CHEW TAB PO SCH (08:39)
[2018-03-08] MEDS: FAMOTIDINE 20 MG TAB PO SCH ×2 (08:39→16:58)
[2018-03-08] MEDS: WARFARIN SOD 1 MG TAB PO SCH (16:58)
[2018-03-08] MEDS: MIRTAZAPINE 15 MG TAB PO SCH (20:52)
[2018-03-08] MEDS: ATORVASTATIN 40 MG TAB PO SCH (20:52)
[2018-03-09] VITALS (7 sets, daily range): BP systolic 106–155; BP diastolic 58–76
[2018-03-09] MEDS: SODIUM CHLORIDE 0.9% 1000ML 1,000 ML IV SCH ×2 (01:33→05:24)
[2018-03-09 06:26] LABS: BASOPHILS # (AUTO) 0.1 (0.0-0.1); BASOPHILS % 0.8 % (0.0-1.0); EOSINOPHILS # (AUTO) 0.9 (0.0-0.4); EOSINOPHILS % 7.8 % (0.0-6.0); HEMATOCRIT 30.6 % (38.2-49.6); HEMOGLOBIN 9.3 g/dL (14.0-18.0); LYMPHOCYTES # (AUTO) 2.2 (1.0-3.2); LYMPHOCYTES % 19.1 % (18.0-39.1); MEAN CORPUSCULAR HEMOGLOBIN 24.3 pg (28-32); MEAN CORPUSCULAR HGB CONC 30.4 g/dL (31-35); MEAN CORPUSCULAR VOLUME 79.9 fL (81-99); MONOCYTES # (AUTO) 1.5 (0.2-0.8); MONOCYTES % 12.9 % (4.4-11.3); NEUTROPHILS # (AUTO) 6.7 (2.1-6.9); NEUTROPHILS % 59.1 % (38.7-80.0); PLATELET COUNT 235 x10e3/uL (140-360); RED BLOOD COUNT 3.83 x10e6/uL (4.3-5.7); RED CELL DISTRIBUTION WIDTH 16.9 % (11.7-14.4)
[2018-03-09 06:49] LABS: ANION GAP 12.1 mmol/L (8-16); CALCIUM 9.2 mg/dL (8.4-10.2); CREATININE, SERUM 1.58 mg/dL (0.72-1.25); POTASSIUM 4.1 mmol/L (3.5-5.1)
--- NOTE | 2018-03-09 07:25 | Progress Note ---
DATE: March 09, 2018 The patient is here for CVA, MCA territory. Currently, feeling and doing okay. No complaints. Scheduled for an angiogram this morning. The patient is alert and oriented times 3. PHYSICAL EXAMINATION VITAL SIGNS: Temperature is 97.2, pulse of 80, respirations of 18, blood pressure is 155/76, pulse oximetry 98%. HEENT: Normocephalic and atraumatic. Pupils are reactive to light and accommodation. NECK: No JVD present. CV: S1 and S2 normal. Regular rate and rhythm. ABDOMEN: Nontender and nondistended. EXTREMITIES: No clubbing. No cyanosis. No edema. MEDICATIONS: Is on atorvastatin, mirtazapine. The patient is on warfarin, pantoprazole, metoprolol, aspirin, and amiodarone. LABORATORY VALUES: Today's white count is 11.31, hemoglobin of 9.3, hematocrit of 30.6, which is stable. No left shift present. Chemistry: Sodium of 140, potassium 4.1, chloride 111, BUN is 20, and creatinine of 1.58, which is better. ASSESSMENT 1. Cerebrovascular accident, middle cerebral artery territory: The patient is on statins. The patient's Ac1 is well controlled. The patient is also on warfarin. Will continue with the same and aspirin. 2. The patient with carotid artery stenosis: Scheduled for an angiogram today. Renal has cleared the patient. 3. Chronic kidney disease, which is stable and is improving with fluid resuscitation: Will continue the same. 4. Hyperlipidemia: Continue atorvastatin. 5. Hypertension: Continue metoprolol. Further recommendations as per angiogram. The patient has been seen by Dr. Casey. Is scheduled for probable carotid endarterectomy in 4-6 weeks depending on the angiogram studies. For further information, look in the chart. Job#: [id number] RANJAN
[2018-03-09 08:22] LABS: INR 1.94; PROTHROMBIN TIME 23.7 seconds (11.9-14.5)
[2018-03-09] MEDS: AMIODARONE HCL 200 MG TAB PO SCH (10:00)
[2018-03-09] MEDS: FAMOTIDINE 20 MG TAB PO SCH ×2 (10:00→18:00)
[2018-03-09] MEDS: METOPROLOL SUCCINATE 50 MG TAB XL PO SCH (10:00)
[2018-03-09] MEDS: PANTOPRAZOLE SOD 40 MG TABEC PO SCH (10:00)
[2018-03-09] MEDS: ASPIRIN 81 MG CHEW TAB PO SCH (10:03)
--- NOTE | 2018-03-09 12:54 | Diagnostic Imaging Report ---
EXAMINATION: Renal ultrasound. CLINICAL HISTORY :Acute kidney injury COMPARISON: <None available.> TECHNIQUE: Grayscale and color Doppler evaluation of the kidneys and bladder was performed in transverse and longitudinal planes. DISCUSSION: RIGHT KIDNEY: The right kidney measures 9.1 cm in length and shows increased renal cortical echogenicity. No hydronephrosis, shadowing calculi or solid mass lesions. LEFT KIDNEY: The left kidney measures 9.3 cm in length and shows increased renal cortical echogenicity. No hydronephrosis, shadowing calculi or solid mass lesions. BLADDER: Partially collapsed and poorly evaluated. The right ureteral jet is identified. The left ureteral jet is not identified likely related to scan acquisition timing. The prostate measures 1.9 x 2.1 x 2.2 cm, estimated volume 4.4 cc IMPRESSION: Kidneys are at the lower limits of normal in length with increased renal cortical echogenicity compatible with medical renal disease. Signed by: Dr. Derrick Moura M.D. on 03/09/2018 12:51 PM
[2018-03-09] MEDS ORDERED: SODIUM CHLORIDE 0.9% 50ML 50 ML ONE (14:27)
[2018-03-09] MEDS ORDERED: GADOBENATE DIMEGLUMINE 1 ML IV ONE (14:27)
[2018-03-09] MEDS: HYDROCODONE/APAP 7.5MG-325MG 1 EA TAB PO PRN (16:29)
--- NOTE | 2018-03-09 17:59 | Diagnostic Imaging Report ---
MRA NECK WOW HISTORY: CVA COMPARISON: Head CT 03/04/2018 and 10/26/2014 TECHNIQUE: Noncontrast axial 2D cervical [id number] and contrast-enhanced coronal cervical MRA images were obtained. Maximum intensity projection images were created. If present, any cervical carotid stenosis will be measured as a percentage relative to the [place] artery distal to the stenosis. 14 mL of MultiHance were administered. Motion and noise artifacts obscure some details. FINDINGS: Right Carotid: There is mild focal stenosis (less than 50%) in the proximal right internal carotid artery. Left Carotid: There is moderate focal stenosis (at least 50-69%) in the proximal left internal carotid artery. Right vertebral artery: No flow abnormalities. Left vertebral artery: No flow abnormalities. IMPRESSION: 1. Moderate focal stenosis (at least 50-69%) in the proximal left internal carotid artery. 2. Mild focal stenosis (less than 50%) in the proximal right internal carotid artery. These findings can be correlated with cervical CTA or carotid ultrasound. Signed by: Dr. Miguel Vergara M.D. on 03/09/2018 5:56 PM
[2018-03-09] MEDS: WARFARIN SOD 1 MG TAB PO SCH (18:00)
[2018-03-09] MEDS: MIRTAZAPINE 15 MG TAB PO SCH (21:01)
[2018-03-09] MEDS: ATORVASTATIN 40 MG TAB PO SCH (21:01)
[2018-03-10] VITALS: BP 135/73
[2018-03-10 00:37] VITALS: BP 111/61
[2018-03-10 04:00] VITALS: BP 112/66
[2018-03-10 06:31] LABS: ANION GAP 12.2 mmol/L (8-16); CALCIUM 9.4 mg/dL (8.4-10.2); CREATININE, SERUM 1.9 mg/dL (0.72-1.25); POTASSIUM 4.2 mmol/L (3.5-5.1)
[2018-03-10 07:26] LABS: ALBUMIN/GLOBULIN RATIO 0.8 (0.8-2.0)
--- NOTE | 2018-03-10 07:34 | Progress Note ---
DATE: March 10, 2018 Patient is status post MRA yesterday. No complaints. No chest pains. No shortness of breath. No neurological deficits noted yesterday. OBJECTIVE VITAL SIGNS: Temperature is 97.1, pulse of 63, respirations of 18, pulse ox 99%. HEENT: Normocephalic and atraumatic. Pupils reactive to light and accommodation. CV: S1 and S2 normal. Regular rate and rhythm. ABDOMEN: Nontender and nondistended. EXTREMITIES: No clubbing. No cyanosis. No edema. LABORATORY VALUES: From yesterday, hemoglobin is 9.3, hematocrit of 30.6. Chemistries done today creatinine up to 1.9, BUN of 22. MEDICATIONS: The patient is on statin, warfarin for anticoagulation, hydrocodone for pain control, pantoprazole for GI prophylaxis, metoprolol and amiodarone for rate control. ASSESSMENT 1. Cerebrovascular accident: Middle cerebral artery territory. Will continue the patient on warfarin and statin. The patient's A1c has been noted. 2. Continue physical therapy and occupational therapy as an outpatient. 3. MRA showed focal stenosis of 50% to 69% in the left proximal left internal carotid and mild focal stenosis at 50% in the proximal right internal carotid artery. PLAN: Do a CEA with Dr. Casey as an outpatient in about 4-6 weeks after this. Continue with home medications. The patient can be discharged home today. Strict TIA warnings have been given. The patient will be discharged after Dr. Ortiz sees him today. Job#: [id number]
[2018-03-10 07:47] LABS: INR 1.88; PROTHROMBIN TIME 23.1 seconds (11.9-14.5)
[2018-03-10 08:00] VITALS: BP 109/59
[2018-03-10] MEDS: FAMOTIDINE 20 MG TAB PO SCH (09:00)
[2018-03-10] MEDS: METOPROLOL SUCCINATE 50 MG TAB XL PO SCH (09:00)
[2018-03-10] MEDS: AMIODARONE HCL 200 MG TAB PO SCH (09:00)
[2018-03-10] MEDS: PANTOPRAZOLE SOD 40 MG TABEC PO SCH (09:00)
[2018-03-10] MEDS: ASPIRIN 81 MG CHEW TAB PO SCH (09:07)
[2018-03-10] MEDS: HYDROCODONE/APAP 7.5MG-325MG 1 EA TAB PO PRN (09:18)
[2018-03-10 09:23] VITALS: BP 109/59
[2018-03-10] MEDS ORDERED: NEOMYCIN/POLYMYX/BACITR OINT 0.9 GM PKT ONE (12:47)
== END 2018-03-10 12:54 | disposition home or self-care (01) | DRG 65 ==
LOC: ER 16:13 → ERHOLD 16:37 → IMCU 21:19 → OBSVTOIN 03-06 17:50 → MED/SURG 03-07 13:58
PROVIDERS: ADMIT Family Medicine; ATTEND Family Medicine
DX: I63.9 Cerebral infarction, unspecified (principal); N17.9 Acute kidney failure, unspecified; R29.810 Facial weakness; D63.8 Anemia in other chronic diseases classified elsewhere; I25.10 Atherosclerotic heart disease of native coronary artery without angina pectoris; Z95.2 Presence of prosthetic heart valve
CPT/HCPCS: 36415; 70450; 70549; 76770; 80048; 80053; 80061; 82550; 82553; 82607; 83036; 83735; 84436; 84443; 84479; 84484; 85025; 85610; 92523; 93306; 93880; 96361; 99284; G0378; J7030